=== PATIENT | female | born 1965 | race Native Hawaiian/Other Pacific Islander ===

== ENCOUNTER 2022-04-05 17:32 | Emergency (ER) | payer SELFPAY ==
[2022-04-05] VITALS (10 sets, daily range): BP systolic 131–156; BP diastolic 62–81; PULSE 78–85; RESP 16–18; TEMP 36.3–36.4; O2SAT 96–100; BMI 37.1
--- NOTE | 2022-04-05 18:37 | CRLHL7_ITS ---
For Patients: As a result of the Century Cures Act, medical imaging exams and procedure reports are released immediately into your electronic medical record. You may view this report before your referring provider. If you have questions, please contact your health care provider. INDICATION: Chest pain. COMPARISON: None. TECHNIQUE: Single-view chest radiograph. FINDINGS: Cardiomediastinal contours within normal limits for patient positioning. Clear lungs. No significant pleural effusion or pneumothorax. IMPRESSION: No acute cardiopulmonary abnormality. Dictated by Ishmael Posey MD @ 04/05/2022 7:05:30 PM (Electronically Signed)
[2022-04-05 19:23] LABS: Basophils Absolute Auto 0.04 K/uL (0.00-0.30); Basophils Percent Auto 0.4 % (0.0-3.0); Eosinophils Absolute Auto 0.49 K/uL (0.00-0.50); Eosinophils Percent Auto 5.2 % (0.0-7.0); Hematocrit 29.1 % (33.0-51.0); Hemoglobin* 9.5 gm/dL (12.0-16.0); Immature Granulocytes Abs Auto 0.02 K/uL (0.00-0.30); Immature Granulocytes Pct Auto 0.2 %; Lymphocytes Absolute Auto 3.17 K/uL (0.90-2.90); Lymphocytes Percent Auto 33.8 % (20-44); Mean Corpuscular HGB Conc 33 gm/dL (32-36); Mean Corpuscular Hemoglobin 28 pg (26-34); Mean Corpuscular Volume 86 fL (80-100); Monocytes Percent Auto 6.7 % (0.0-11.0); Neutrophils Absolute Auto 5.02 K/uL (1.7-7.0); Neutrophils Percent Auto 53.7 % (42.0-72.0); Platelet Count* 358 K/uL (140-440); RDW Coefficient of Variation % 12.7 % (11.5-15.5); Red Blood Count 3.37 m/uL (4.00-5.20); White Blood Count* 9.37 K/uL (4.50-11.00)
[2022-04-05 19:29] LABS: Slide Review Reflex No
[2022-04-05 19:38] LABS: Chloride* 106 mmol/L (96-114); Potassium* 5.5 mmol/L (3.6-5.1); Sodium* 135 mmol/L (135-149)
[2022-04-05 19:41] LABS: Creatinine* 0.8 mg/dL (0.5-1.5); Estimated Glomerular Filt Rate 86 ml/min
[2022-04-05 19:42] LABS: Blood Urea Nitrogen* 39 mg/dL (7-30); Calcium* 9.1 mg/dL (8.4-10.6); Carbon Dioxide* 27 mmol/L (20-32); Glucose* 181 mg/dL (60-115)
[2022-04-05 19:50] LABS: C Reactive Protein* < 0.5 mg/dL (0.5-1.0)
[2022-04-05 19:51] LABS: NT Pro B Type NatriureticPept* 100 pg/mL
[2022-04-05 19:53] LABS: Troponin I* 0.02 ng/mL (0.01-0.04)
--- NOTE | 2022-04-05 20:03 | ED_ITS ---
HPI - General Adult General Chief complaint: Chest Pain Stated complaint: Chest Pain Time Seen by Provider: 04/05/22 18:24 History of Present Illness HPI narrative: 57-year-old woman presenting to the emergency department complaint of left upper chest pressure. She describes it though was more of palpitation or fluttering that occurred intermittently yesterday evening and then recurred again today and just did not seem to go away since about noon. This has been going on for hours now. As I am talking with her looking on monitor I think sometimes I am seeing some PACs. She isn't specifically symptomatic with this though. She had a similar episode about 2 months ago. She is not having shortness of breath. No nausea. Does not have known coronary vascular disease. She does report that her mother had an ischemic cardiac event she thinks around age 58 but her mom also had diabetes. I do look back at records here and I see a rather elevated hemoglobin A1c over 10 a year ago or so. Review confirms diabetes. She does have leg cramps as well that has been going on for some time; she notes her thighs. More noticeable in the evenings. They can get stiff. Not just an irritability. Chest symptoms can get worse with exertion. She does work in a factory. Healthcare generally through [facility] Related Data Allergies Allergy/AdvReac Type Severity Reaction Status Date / Time No Known Drug Allergies Allergy Verified 04/05/22 17:51 Review of Systems Status of ROS: Reports: 10 or more systems reviewed and unremarkable except as noted in History and below PFSH PFSH Social History Smoking Status: Never smoker Do you use any of these nicotine containing products: None Second hand tobacco smoke exposure: Yes How often do you have a drink containing alcohol: never How often do you have six or more drinks on one occasion: Never AUDIT-C Alcohol total score: 0 Non-prescribed substance use: denies use service: No Exam Narrative: Exam Narrative: Pleasant. NAD. Skin is warm and dry. Extremities are without reproducible pain. There is no lower extremity edema. Moving all extremities without difficulty. She is well-perfused. Cranial nerves 2-12 look to be intact. Breathing easily lungs are clear. Heart with a regular rate and rhythm. No murmur rub or gallop identified. Abdomen is overweight soft nontender. Examination of the chest wall does have some reproducibility at the left mid chest anteriorly. I do not see any erythema swelling or rash to the skin. Again as I am talking with her she is reporting continued symptoms. I think there are occasional PACs on monitor though this also corresponds with some movement by Ms. Nunez. Const: Vital Signs, click to edit/add: Vital Signs - 24 hr 04/05/22 17:52 04/05/22 19:16 04/05/22 19:17 Temperature 97.4 F L 97.6 F Pulse Rate [Pulse Oximeter] 85 85 Respiratory Rate 18 18 Blood Pressure [Ri ght Upper Arm] 153/72 H 131/63 Pulse Oximetry 98 96 99 Oxygen Delivery Me thod Room Air Room Air 04/05/22 19:30 04/05/22 19:45 04/05/22 20:00 Temperature Pulse Rate [Pulse Oximeter] 82 82 84 Respiratory Rate 18 16 16 Blood Pressure [Ri ght Upper Arm] 145/75 H 156/81 H 146/62 H Pulse Oximetry 98 98 98 Oxygen Delivery Me thod Room Air Room Air 04/05/22 20:15 04/05/22 20:30 04/05/22 21:00 Temperature Pulse Rate [Pulse Oximeter] 81 82 84 Respiratory Rate 16 16 16 Blood Pressure [Ri ght Upper Arm] 146/62 H 138/64 141/71 H Pulse Oximetry 98 98 98 Oxygen Delivery Me thod Room Air 04/05/22 21:15 Temperature Pulse Rate [Pulse Oximeter] 78 Respiratory Rate 16 Blood Pressure [Ri ght Upper Arm] 143/74 H Pulse Oximetry 100 Oxygen Delivery Me thod Room Air Documenting provider has reviewed patient's vital signs: yes Course Vital Signs Vital signs: Initial Vital Signs Temperature 97.4 F L 04/05/22 17:52 Temperature Source Temporal Artery Scan 04/05/22 17:52 Pulse Rate 85 04/05/22 17:52 Pulse Rhythm 04/05/22 17:52 Respiratory Rate 18 04/05/22 17:52 Blood Pressure 153/72 H 04/05/22 17:52 Blood Pressure Mean 99 04/05/22 17:52 Blood Pressure Position Sitting 04/05/22 17:52 Pulse Oximetry 98 04/05/22 17:52 Oxygen Delivery Method 04/05/22 17:52 Vital Signs Temperature 97.4 F L 04/05/22 17:52 Pulse Rate 85 04/05/22 17:52 Respiratory Rate 18 04/05/22 17:52 Blood Pressure 153/72 H 04/05/22 17:52 Pulse Oximetry 98 04/05/22 17:52 Oxygen Delivery Method 04/05/22 17:52 Temperature 97.6 F 04/05/22 19:17 Pulse Rate 78 04/05/22 21:15 Respiratory Rate 16 04/05/22 21:15 Blood Pressure 143/74 H 04/05/22 21:15 Pulse Oximetry 100 04/05/22 21:15 Oxygen Delivery Method 04/05/22 21:15 Medical Decision Making MDM Narrative Medical decision making narrative: differential includes pe, pneumonia, pneumothorax, pericarditis, myocarditis, chest wall pain, arrhythmia, vascular disruption, anxiety facilities maintenance worker -- pacs? sxs not distinct to these. cxr reviewed by me wnl ekg as below labs reassuring. K+ a little elevated in the setting of elevated blood glucose. though bg not terribly high compared to prior, hgb drifting down a little. down by 1.5 gm over last 6 mos. not evidence of active bleeding. anemia adding to leg cramps restlessness? Lab Data Lab results reviewed: Yes I reviewed the patient's lab results Labs: Lab Results 04/05/22 04/05/22 04/05/22 Range/Units 19:11 19:11 19:11 WBC 9.37 (4.50-11.00) K/uL RBC 3.37 L (4.00-5.20) m/uL Hgb 9.5 L (12.0-16.0) gm/dL Hct 29.1 L (33.0-51.0) % MCV 86 (80-100) fL MCH 28 (26-34) pg MCHC 33 (32-36) gm/dL RDW Coeff of John 12.7 (11.5-15.5) % Plt Count 358 (140-440) K/uL Neut % (Auto) 53.7 (42.0-72.0) % Lymph % (Auto) 33.8 (20-44) % Perkins % (Auto) 6.7 (0.0-11.0) % Eos % (Auto) 5.2 (0.0-7.0) % Baso % (Auto) 0.4 (0.0-3.0) % Neut # (Auto) 5.02 (1.7-7.0) K/uL Lymph # (Auto) 3.17 H (0.90-2.90) K/uL Perkins # (Auto) 0.60 (0.00-0.90) K/UL Eos # (Auto) 0.49 (0.00-0.50) K/uL Baso # (Auto) 0.04 (0.00-0.30) K/uL D-Dimer Quant (PE/DVT) 0.40 (0.00-0.50) ug/ml Sodium 135 (135-149) mmol/L Potassium 5.5 H (3.6-5.1) mmol/L Chloride 106 (96-114) mmol/L Carbon Dioxide 27 (20-32) mmol/L BUN 39 H (7-30) mg/dL Creatinine 0.8 (0.5-1.5) mg/dL Estimated Creat Clear 56.40 Estimated GFR 86 ml/min Glucose 181 H (60-115) mg/dL Calcium 9.1 (8.4-10.6) mg/dL Magnesium (1.5-2.6) mg/dL Troponin I (0.01-0.04) ng/mL C-Reactive Protein < 0.5 L (0.5-1.0) mg/dL NT-Pro-B Natriuret Pep pg/mL POC Troponin I (0.01-0.04) ng/ml 04/05/22 04/05/22 Range/Units 19:11 19:16 WBC (4.50-11.00) K/uL RBC (4.00-5.20) m/uL Hgb (12.0-16.0) gm/dL Hct (33.0-51.0) % MCV (80-100) fL MCH (26-34) pg MCHC (32-36) gm/dL RDW Coeff of John (11.5-15.5) % Plt Count (140-440) K/uL Neut % (Auto) (42.0-72.0) % Lymph % (Auto) (20-44) % Perkins % (Auto) (0.0-11.0) % Eos % (Auto) (0.0-7.0) % Baso % (Auto) (0.0-3.0) % Neut # (Auto) (1.7-7.0) K/uL Lymph # (Auto) (0.90-2.90) K/uL Perkins # (Auto) (0.00-0.90) K/UL Eos # (Auto) (0.00-0.50) K/uL Baso # (Auto) (0.00-0.30) K/uL D-Dimer Quant (PE/DVT) (0.00-0.50) ug/ml Sodium (135-149) mmol/L Potassium (3.6-5.1) mmol/L Chloride (96-114) mmol/L Carbon Dioxide (20-32) mmol/L BUN (7-30) mg/dL Creatinine (0.5-1.5) mg/dL Estimated Creat Clear Estimated GFR ml/min Glucose (60-115) mg/dL Calcium (8.4-10.6) mg/dL Magnesium 2.0 (1.5-2.6) mg/dL Troponin I 0.02 (0.01-0.04) ng/mL C-Reactive Protein (0.5-1.0) mg/dL NT-Pro-B Natriuret Pep 100 pg/mL POC Troponin I 0.00 L (0.01-0.04) ng/ml ECG Data Attestation: I personally reviewed and interpreted this ECG as follows: (Normal sinus rate of 78) Discharge Plan Discharge Clinical Impression: Anemia, Hyperglycemia, Chest pressure, Hyperkalemia Patient Disposition: Home, Self-Care Condition: Stable Instructions: Chest Pain (ED) Additional Instructions: Your elevated potassium might be partially due to your elevated blood sugar. I would follow up in a week and recheck this. Your hemoglobin has also been drifting down a little bit as well. Recheck that and make a plan with your primary care provider for further workup. As far as your chest discomfort goes, that is a little unclear. As you were little uncomfortable to palpation, might take 600 mg of ibuprofen couple of times daily with a little food over the next 5 days or 250-500 mg of naproxen 2 times daily for 5 days. You were complaining also of leg cramps; it might help to supplement with magnesium. Usually that is at 400 mg twice a day for a week or 2 and then to 400 mg daily. Can discuss this also with primary care. Return for increasing and persistent chest pain particularly associated with shortness of breath or fever or lightheadedness. Elizondo nivel elevado de potasio podr?a deberse en parte a elizondo nivel elevado de az?car en la debby. Augustus?a un seguimiento en kathryn semana y volver?a a comprobar esto. Elizondo hemoglobina tambi?n durant estado bajando un poco. Vuelva a verificar eso y won un plan con elizondo proveedor de atenci?n primaria para m?s an?lisis. En cuanto a elizondo molestia en el pecho, eso no est? paulo. Leonore se sent?a un poco inc?modo a la palpaci?n, podr?a yissel 600 mg de ibuprofeno un par de veces al d?a con un poco de comida cale los pr?ximos 5 d?as o 250-500 mg de naproxeno 2 veces al d?a cale 5 d?as. Usted se quejaba tambi?n de calambres en las piernas; Podr?a ayudar complementar con magnesio. Por lo general, eso es a 400 mg dos veces al d?a cale kathryn semana o 2 y luego a 400 mg diarios. Puede discutir esto tambi?n con la atenci?n primaria. Retorno para el dolor tor?cico creciente y persistente particularmente asociado con dificultad para respirar o fiebre o aturdimiento. Follow Up/Referrals: Provider,Not a Local [Primary Care Provider] - Stand Alone Forms: [facility] Info Inst[facility]
== END 2022-04-05 21:39 | disposition home or self-care (01) ==
PROVIDERS: Emergency Provider Family Medicine
DX: D64.9 Anemia, unspecified (principal); R73.9 Hyperglycemia, unspecified; R07.89 Other chest pain; E87.5 Hyperkalemia
CPT/HCPCS: 36415; 71045; 80048; 83735; 83880; 84484; 85025; 85379; 86140; 93005; 94761; 99284; 99285

== ENCOUNTER 2023-08-17 21:06 | Emergency (ER) | payer OTHER, SELFPAY ==
[2023-08-17 21:14] VITALS: BP 152/75; PULSE 77; RESP 18; TEMP 36.4; O2SAT 98; BMI 35.1
--- NOTE | 2023-08-17 21:41 | ED_ITS ---
HPI - General Adult General Chief complaint: Lower Extremity Swelling Stated complaint: Swollen R foot. Time Seen by Provider: 08/17/23 21:32 History of Present Illness HPI narrative: Patient is a 58-year-old woman who had episode of right lower extremity cellulitis following a pedicure proximally 2 months ago. Patient made full recovery but has poorly controlled diabetes. She now has redness over the anterior aspect of the ankle and foot consistent with her previous cellulitis. She has no evidence of DVTs such as swelling in her posterior cap bruising or ecchymoses. All symptoms are located on the right. She has burning and itching and mild discomfort. No fevers no chills no other significant symptoms no recent injuries. Related Data Home Medications ?Medication ?Instructions ?Recorded ?Confirmed acetaminophen PO 08/17/23 aspirin .ROUTE 08/17/23 gabapentin 300 mg capsule 300 mg PO 3XD 08/17/23 08/17/23 glipizide PO 08/17/23 insulin asp prt-insulin aspart subcut 08/17/23 levothyroxine .ROUTE 08/17/23 lisinopril .ROUTE 08/17/23 metformin .ROUTE 08/17/23 Allergies Allergy/AdvReac Type Severity Reaction Status Date / Time No Known Drug Allergies Allergy Verified 06/13/23 15:53 Review of Systems Status of ROS: Reports: 10 or more systems reviewed and unremarkable except as noted in History and below PFSH PFS Social History Smoking Status: Never smoker Do you use any of these nicotine containing products: None Second hand tobacco smoke exposure: No How often do you have a drink containing alcohol: never How often do you have six or more drinks on one occasion: Never AUDIT-C Alcohol total score: 0 Non-prescribed substance use: denies use service: No Exam Narrative: Exam Narrative: EXAM GENERAL: Patient appears comfortable and well. EYES: No scleral icterus. ENT: Tympanic membranes and oropharynx normal. THYROID: no thyroid nodules or thyromegaly. LYMPH: No supraclavicular or cervical lymphadenopathy. SKIN: Area of cellulitis with erythema slightly raised cutaneous tissue in the anterior ankle. EXT: No dependent lower extremity pedal edema. HEART: Regular rate and rhythm with no murmurs, rubs, or gallops. LUNGS: Clear to auscultation bilaterally with no crackles or wheezes. ABD: Soft, non tender, non distended. PSYCH: Good eye contact, speech is not pressured. Const: Vital Signs, click to edit/add: Vital Signs - 24 hr 08/17/23 21:14 Temperature 97.6 F Pulse Rate [Pulse Oximeter] 77 Respiratory Rate 18 Blood Pressure [Ri ght Upper Arm] 152/75 H Pulse Oximetry 98 Oxygen Delivery Me thod Room Air Course Course ED Course: Patient seen and examined. Vital Signs Vital signs: Initial Vital Signs Temperature 97.6 F 08/17/23 21:14 Temperature Source Temporal Artery Scan 08/17/23 21:14 Pulse Rate 77 08/17/23 21:14 Respiratory Rate 18 08/17/23 21:14 Blood Pressure 152/75 H 08/17/23 21:14 Blood Pressure Mean 100 08/17/23 21:14 Blood Pressure Position Sitting 08/17/23 21:14 Pulse Oximetry 98 08/17/23 21:14 Oxygen Delivery Method Room Air 08/17/23 21:14 Vital Signs Temperature 97.6 F 08/17/23 21:14 Pulse Rate 77 08/17/23 21:14 Respiratory Rate 18 08/17/23 21:14 Blood Pressure 152/75 H 08/17/23 21:14 Pulse Oximetry 98 08/17/23 21:14 Oxygen Delivery Method Room Air 08/17/23 21:14 Temperature 97.6 F 08/17/23 21:14 Pulse Rate 77 08/17/23 21:14 Respiratory Rate 18 08/17/23 21:14 Blood Pressure 152/75 H 08/17/23 21:14 Pulse Oximetry 98 08/17/23 21:14 Oxygen Delivery Method Room Air 08/17/23 21:14 Medical Decision Making MDM Narrative Medical decision making narrative: Patient is a 58-year-old woman who presents with recurrence of cellulitis in the right lower extremity. Sense of DVT. I did treated with Keflex. Differential diagnosis includes but not limited to cellulitis abscess monoarthritis contact dermatitis allergic reaction. Patient courage to follow-up with her primary physician her diabetes under better control take Keflex for week and keep her leg elevated. Discharge Plan Discharge Clinical Impression: Cellulitis Patient Disposition: Home, Self-Care Condition: Stable Instructions: Cellulitis (ED) Additional Instructions: Keflex as directed Leg elevation Follow-up with your doctor this week to address her diabetes. Activity Level: No Restrictions Discharge Diet: Regular Prescriptions: No Action acetaminophen PO metformin .ROUTE aspirin .ROUTE glipizide PO levothyroxine .ROUTE lisinopril .ROUTE insulin asp prt-insulin aspart [Novolog Mix 70-30FlexPen U-100] subcut gabapentin 300 mg capsule 300 mg PO 3XD Follow Up/Referrals: Provider,Not a Local [Primary Care Provider] - Stand Alone Forms: [facility] Info Instructions
--- OUTSIDE RECORDS SUMMARY | 2023-08-17 21:56 | XMS_ITS | Clinical Summary ---
Author Organization [facility] Address [place], [place] [address] Care Team Providers Care Studio Hand Name Role Phone Cyn Cha DO Primary Care Provider [phone] Allergies No known active allergies Medications Medication Sig Dispensed Refills Start Date End Date Status ASPIRIN 81 MG TAB, DELAYED RELEASE take 1 tablet (81 mg) by oral route once daily 0 01/22/2008 Active BLOOD GLUCOSE TEST STRIPSIndications:DM type 2 (diabetes mellitus, type 2) (HC) test blood sugars 1-3 times daily. 100 3 09/14/2008 Active FREESTYLE TEST STRIPSIndications:Ty pe II or unspecified type diabetes mellitus without mention of complication, not stated as uncontrolled test blood sugars three times daily. 100 11 11/20/2008 Active INSULIN SYRINGE-NEEDLE U-100 1/2 ML 31 X 5/16Indications:Typ e II or unspecified type diabetes mellitus without mention of complication, not stated as uncontrolled use as directed 1 box 11 11/20/2008 Active polyethylene glycoL (MIRALAX) 17 gram/dose powderIndications:BR BPR (bright red blood per rectum),Hemorrhoids, external Take 17 g by mouth once daily. 1 jar 1 05/30/2016 Active levothyroxine (SYNTHROID) 137 mcg tabletIndications:Ot her specified hypothyroidism TAKE 1 TABLET BY MOUTH BEFORE BREAKFAST. 90 tablet 2 06/22/2018 Active metFORMIN (GLUCOPHAGE) 1,000 mg tabletIndications:Di abetes mellitus without complication (HC) TAKE 1 TABLET BY MOUTH 2 TIMES DAILY WITH MEALS. 180 tablet 09/16/2018 Active ferrous sulfate, 65 mg elemental, tablet FeroSul 325 mg (65 mg iron) tablet TAKE 2 TABLETS BY MOUTH EVERY OTHER DAY Active lisinopriL (PRINIVIL; ZESTRIL) 10 mg tablet lisinopril 10 mg tablet TAKE ONE TABLET BY MOUTH EVERY DAY Active melatonin 10 mg tab melatonin 10 mg tablet Take 1 tablet by oral route. Active naproxen (NAPROSYN) 500 mg tablet naproxen 500 mg tablet TAKE ONE TABLET BY MOUTH EVERY DAY Active gabapentin (NEURONTIN) 300 mg capsuleIndications:C hronic bilateral thoracic back pain,Neuropathic pain Take 1 Capsule (300 mg) by mouth three times daily. 270 Capsule 1 08/18/2022 Active tiZANidine (ZANAFLEX) 2 mg tabletIndications:Ch ronic bilateral thoracic back pain Take 1-2 Tablets (2-4 mg) by mouth at bedtime. 40 Tablet 08/18/2022 Active celecoxib (CELEBREX) 200 mg capsuleIndications:B ilateral primary osteoarthritis of knee Take 1 Capsule (200 mg) by mouth two times daily with meals. 60 Capsule 2 10/16/2022 Active methylPREDNISolone (Medrol, Cam,) 4 mg tabletIndications:Roxie mbar radiculopathy Take by mouth as instructed per packaging. 21 Tablet 05/10/2023 Active glyBURIDE (MICRONASE; DIABETA) 5 mg tabletIndications:Un controlled type 2 diabetes mellitus with hyperglycemia, with long-term current use of insulin (HC) Take 1 Tablet by mouth before breakfast. Active insulin NPH-regular (NOVOLIN FLEXPEN; HUMULIN KWIKPEN) 100 unit/mL (70-30) penIndications:Uncon trolled type 2 diabetes mellitus with hyperglycemia, with long-term current use of insulin (HC) Inject 30-40 units subcutaneous two times daily before meals. 20 mL 2 05/18/2023 Active insulin NPH isophane, U-100, (NOVOLIN-N, HUMULIN-N) 100 unit/mL susp injectionIndications :Uncontrolled type 2 diabetes mellitus with hyperglycemia, with long-term current use of insulin (HC) Inject 60 units subcutaneous before bedtime. 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 Plan: Pap/HPV due 03/2026 Chronic right shoulder pain 12/28/2016 Dental decay 12/28/2016 Other insomnia 12/28/2016 Internal hemorrhoids 06/20/2016 Overview: Colonoscopy 05/2016 hemorrhoids repeat in 10 years Helicobacter pylori (H. pylori) 11/15/2009 Hypothyroidism 06/11/2009 Type II or unspecified type diabetes mellitus without mention of complication, not stated as uncontrolled 04/03/2008 Hyperlipidemia LDL goal < 100 Encounters Date Type Department Care Team Description 06/25/2023 4:20 PM CDT Office Visit [facility] [address] [place] [address] Cyn Cha, Results (Discuss lab results) 06/25/2023 Travel 05/21/2023 Telephone [facility] [address] [place] [address] Cyn Cha, Results 05/18/2023 3:30 PM CDT Office Visit [facility] [address] [place] [address] Cyn Cha, DO Diabetes (diabetes/having a hard time getting sugar levels down) 05/18/2023 Travel from Last 3 Months Immunizations Name Administration Dates Next Due Influenza, IIV3 (Age >=3 years) 03/28/2013 Influenza, IIV4 01/18/2021, 9,12/11/2016,2014,01/23/2014 Pneumococcal Poly,23-Valent (Pneumovax) 01/19/2015 Td (Age >=7 Years) 02/27/2004 Tdap 01/23/2014 Zoster (Shingrix-RZV, recombinant) 06/25/2023, Family History Medical History Relation Name Comments Diabetes Brother x4 Diabetes Mother Hypertension Mother Cancer-breast No Family History Relation Name Status Comments Brother Mother Social History Tobacco Use Types Packs/Day Years Used Date Smoking Tobacco: Passive Smo ke Exposure - Never Smoker Smokeless Tobacco: Never Tobacco Cessation:Counseling Given: Yes Alcohol Use Standard Drinks/Week Comments No 0 (1 standard drink = 0.6 oz pur e alcohol) PHQ-2 Answer Date Recorded PHQ-2 TOTAL SCORE 2 04/13/2021 Social Connections Answer Date Recorded Frequency of Communication with Friends and Fami ly Not on file 04/13/2021 Financial Resource Strain Answer Date R ecorded Difficulty of Paying Living Expenses Not on file 04/13/2021 Difficulty of Paying Living Expenses Not on file 04/13/2021 Sex and Gender Information Value Date Recorded Sex Assigned at Not on file Gender Identity Not on file Sexual Orientation Not on file Obstetrics History Para Term AB IAB SAB Ectopic Multiple Livin g Live Births 4 4 4 Date Outcome GA Total Labor Labor/2nd/3rd Weight Sex Type Anes PTL Zunilda A1 A5 Name Clin Term Term Term Term Last Filed Vital Signs Vital Sign Reading Time Taken Comments Blood Pressure 161/78 06/25/2023 4:22 PM CDT Pulse 84 06/25/2023 4:22 PM CDT Temperature 36.7 ??C (98 ??F) 11/29/2022 2:34 PM CDT Respiratory Rate 20 05/30/2016 8:14 AM CDT Oxygen Saturation 99% 06/25/2023 4:22 PM CDT Inhaled Oxygen Concentration - - Weight 88.5 kg (195 lb 3.2 oz) 06/25/2023 4:22 P M CDT Height 150.4 cm (4' 11.21) 05/12/2022 3:22 PM C DT Body Mass Index 39.14 05/12/2022 3:22 PM CDT Plan of Treatment Health Maintenance Due Date Last Done Comments HIV for age 15-65 1981 Hepatitis C screening for ag e 18-79 1984 Hepatitis B series for Diabe yuli (1 of 3 - 19+ 3-dose series) 1985 Pneumococcal series for age 6-64 (2 of 2 - PCV) 01/20/2016 01/19/2015 Mammogram for age 45-75 04/13/2022 04/13/19 22, 01/03/2013, 05/05/2011, Additional history exists Depression screening for age 12+ 04/14/2022 04/14/2021, 04/13/2021, 11/30/2017, Additional history exists COVID-19 vaccine series ( season) 2022 03/18/2021, 06/12/2020, 05/22/2020 BMI (ht and wt on same day) for age 18+ 05/13/2023 05/12/2022, 07/22/2021, 07/23/2018, Additional history exists Influenza for age 50-64 10/28/2023 01/19/20, 04/22/2018, 12/11/2016, Additional history exists Tetanus booster 01/24/2024 01/23/2014, 02/27/2004 Pap test for age 21-65 04/13/2026 , 04/13/2021, 04/17/2011, Additional history exists Colonoscopy through age 75 06/20/202606/20, 06/20/2016, 06/20/2016 Lipids for age 45-75 05/17/2028 05/18/2023, 05/12/2022, 04/13/2021, Additional history exists Tdap Completed 01/23/2014 Zoster (shingles) series for age 50+ Completed 06/25/2023, 07/22/2021 Procedures Procedure Name Priority Date/Time Associated Diagnosis Comments URINE ALBUMIN TO CREATININE RATIO, RANDOM Routine 05/18/2023 3:57 PM CDT Uncontrolled type 2 diabetes mellitus with hyperglycemia, with long-term current use of insulin (HC) TSH Routine 05/18/2023 3:52 PM CDT Hypothyroidism due to medication BASIC METABOLIC PANEL Routine 05/18/2023 3:52 PM CDT Uncontrolled type 2 diabetes mellitus with hyperglycemia, with long-term current use of insulin (HC) LIPID PANEL W REFLEX MEASURED LDL Routine 05/18/2023 3:52 PM CDT Hyperlipidemia with target LDL less than 100 Uncontrolled type 2 diabetes mellitus with hyperglycemia, with long-term current use of insulin (HC) HEMOGLOBIN A1C Routine 05/18/2023 3:52 PM CDT Uncontrolled type 2 diabetes mellitus with hyperglycemia, with long-term current use of insulin (HC) XR MAMMO BILAT SCREENING Routine 04/13/2021 4:45 PM BARREL INSPECTOR Encounter for screening mammogram for malignant neoplasm of breast WARP HANGER THIN PREP PAP SCREEN IMAGED Routine 04/13/2021 4:00 PM BARREL INSPECTOR Screening for cervical cancer COLONOSCOPY 06/20/2016 9:38 AM CDT from Last 3 Months or Most Recently Relevant to Health Maintenance Results * (ABNORMAL) URINE ALBUMIN TO CREATININE RATIO, RANDOM (05/18/2023 3:57 PM CDT) ALB RAND URINE 693.0 mg/L 05/18/2023 11:34 PM CDT [facility] CREATININE,URIN E 0.25 g/L 05/18/2023 11:34 PM CDT [facility] ALBUMIN TO CREATININE RATIO,RAND UR 2,772.0(H) <30.0 mg/g creat 05/18/2023 11:34 PM CDT [facility] Urine URINE SPECIMEN / Unknown Non-Blood / Unknown 05/18/2023 3:57 PM CDT 05/18/2023 3:57 PM CDT Narrative [facility] - 05/18/2023 11:34 PM CDT If Albumin to Creatinine Ratio is elevated, consider the following: ? Elevations seen with incipient nephropathy associated ?? with diabetes mellitus or hypertension. Stress, exercise,hematuria, ?? and urinary tract infection may also produce elevated results. If clinically indicated, confirm with ?24 Hour Albumin to Creatinine Ratio. ?? Cyn Cha DO URINE [facility] [address] [place] [address], * (ABNORMAL) LIPID PANEL W REFLEX MEASURED LDL (05/18/2023 3:52 PM CDT) CHOLESTEROL,TOTAL 252(H) 100 - 199 mg/dL 05/18/2023 9:38 PM CDT [facility] Comment: Cholesterol, Total Reference Ranges Desirable <200 mg/dL Borderline 200-239 mg/dL High >=240 mg/dL TRIGLYCERIDES 129 <150 mg/dL 05/18/2023 9:38 PM CDT [facility] HDL CHOLESTEROL 111 >40 mg/dL 9:38 PM CDT [facility] NON-HDL CHOLESTEROL 141 <145 mg/dl 05/18/2023 9:38 PM CDT [facility] CHOL/HDL RATIO 2.27 <4.50 05/18/2023 9:38 PM CDT [facility] LDL CHOLESTEROL 115 <=130 mg/dL 05/18/2023 9:38 PM CDT [facility] VLDL CHOLESTEROL 26 <=30 mg/dL 05/18/2023 9:38 PM CDT [facility] PROVIDER ORDERED STATUS RANDOM 05/18/2023 9:38 PM CDT [facility] Blood BLOOD SPECIMEN / Unknown Butterfly / Unknown 05/18/2023 3:52 PM CDT 05/18/2023 3:55 PM CDT Cyn Cha DO CHEMISTRY Performing Organization Address City/[facility]/ZIP Co de Phone Number [facility] [address] [place] [address], * TSH (05/18/2023 3:52 PM CDT) TSH 2.97 0.27 - 4.20 uIU/mL 05/18/2023 9:38 PM CDT [facility] Blood BLOOD SPECIMEN / Unknown Butterfly / Unknown 05/18/2023 3:52 PM CDT 05/18/2023 3:55 PM CDT Narrative [facility] - 05/18/2023 9:38 PM CDT In Adults, TSH values between 5.00 and 10.00 uIU/ml do not necessarily indicate the presence of Hypothyroidism. Correlation with clinical findings such as presence of goiter and/or Thyroperoxidase (TPO) Antibody may be helpful. For more information please refer to SANDIE 2004; 291: 228-238. Cyn Cha DO CHEMISTRY [facility] [address] [place] [address], [place] * (ABNORMAL) HEMOGLOBIN A1C MONITORING (POCT) (05/18/2023 3:52 PM CDT) [facility] HEMOGLOBIN A1C MONITORING (POCT) 13.6(H) <=6.4 % 05/18/2023 4:06 PM CDT [facility] Blood BLOOD SPECIMEN / Unknown Butterfly / Unknown 05/18/2023 3:52 PM CDT 05/18/2023 3:55 PM CDT Narrative [facility] - 05/18/2023 4:06 PM CDT ? (<=6.9%) ? Indicates good control ? (7.0% to 7.9%) ? Indicates fair control ? (>=8.0%) ? Indicates poor control ?? NOTE: ??These thresholds are guidelines and ?individual targets may vary. Falsely low levels may be seen with: Recent Transfusion, Recent Significant Blood Loss, Hemolytic Diseases, or Falsely elevated levels may be seen with: Untreated Anemias, Splenectomy ? Cyn Cha DO CHEMISTRY Performing Organization Address City/[facility]/ZIP Co de Phone Number [facility] [address] [place] [address], * (ABNORMAL) BASIC METABOLIC PANEL (05/18/2023 3:52 PM CDT) [facility] SODIUM 134(L) 136 - 145 mmol/L 05/18/2023 9:44 PM CDT [facility] POTASSIUM 4.5 3.5 - 5.1 mmol/L 05/18/2023 9:44 PM CDT [facility] CHLORIDE 98 98 - 107 mmol/L 05/18/2023 9:44 PM CDT [facility] CO2,TOTAL 24 22 - 29 mmol/L 05/18/2023 9:44 PM CDT [facility] ANION GAP 12 5 - 18 05/18/2023 9:44 PM CDT [facility] GLUCOSE 413(H) 70 - 99 mg/dL 05/18/2023 9:44 PM CDT [facility] CALCIUM 9.3 8.6 - 10.0 mg/dL 05/18/2023 9:44 PM CDT [facility] BUN 30(H) 6 - 20 mg/dL 05/18/2023 9:44 PM CDT [facility] CREATININE 0.73 0.50 - 0.90 mg/dL 05/18/2023 9:44 PM CDT [facility] BUN/CREAT RATIO 41(H) 10 - 20 9:44 PM CDT [facility] eGFR >90 >90 mL/min/1.7 3m2 05/18/2023 9:44 PM CDT [facility] Comment:As of 2021, eG FR is calculated by the CKD-EPI creatinine equation without race adjustment. ??eGFR can be influenced by muscle mass, exercise, and diet. ??The reported eGFR is an estimation only and is only applicable if the renal function is stable. Blood BLOOD SPECIMEN / Unknown Butterfly / Unknown 05/18/2023 3:52 PM CDT 05/18/2023 3:55 PM CDT Cyn Cha DO CHEMISTRY [facility] [address] [place] [address], [place] * XR MAMMO BILAT SCREENING (04/13/2021 4:45 PM BARREL INSPECTOR) Anatomical Region Laterality Modality BREASTS, Breast Left, Breast Right Bilateral Mammography Impressions 04/14/2021 3:10 PM BARREL INSPECTOR ??There is no radiographic evidence for malignancy. ??Recommend annual mammograms. MAMMOGRAM ASSESSMENT: ??ACR 1 Negative PATIENTS: You will also receive a letter with your examination results in an easy to read format. ??If you have questions about your results, please contact your referring provider. Narrative 04/14/2021 3:10 PM BARREL INSPECTOR For Patients: As a result of the Century Cures Act, medical imaging exams and procedure reports are released immediately into your electronic medical record. You may view this report before your referring provider. If you have questions, please contact your health care provider. XR MAMMO BILAT SCREENING [[id number]] CLINICAL HISTORY: ??This is an asymptomatic 56 y.o. patient. INDICATION FOR EXAM: Mammogram Screening. TECHNIQUE: CC & MLO views were obtained. ??This study was evaluated with the assistance of Computer-Aided Detection. COMPARISON FILM: Yes 01/03/13 mobile mum ?? FINDINGS: ??The breasts are almost entirely fatty. There are no dominant masses, suspicious micro calcifications or areas of architectural distortion. Cyn Cha DO MAMMO * WARP HANGER THIN PREP PAP SCREEN IMAGED [[id number]] (04/13/2021 4:00 PM BARREL INSPECTOR) Case Report Gynecologic Cytology Report ? Case: [id number] ? Authorizing Provider: ??Cyn Cha, DO ? Collected: ? 04/13/2021 1600 ? Ordering Location: ? [facility] ?? Received: ?04/13/2021 1752 ? Clinic ? First Screen: ?Nav Ibarra ? Specimen: ?WARP HANGER ThinPrep Vial Screening, Cervical ? 04/22/2021 10:18 AM [facility] INTERPRETATION/ RESULT NEGATIVE FOR INTRAEPITHELIAL LESION OR MALIGNANCY (NIL) (none) 04/22/2021 10:18 AM [facility] NISM(S) Shift in kenn suggestive of bacterial vaginosis 04/22/2021 10:18 AM [facility] SPECIMEN ADEQUACY Satisfactory for evaluation Endocervical component present 04/22/2021 10:18 AM BARREL INSPECTOR [facility] HPV REQUEST HPV and PAP 04/22/2021 10:18 AM BARREL INSPECTOR [facility] Date of LMP n/a 04/22/2021 10:18 AM [facility] Last Pap Date 201404/22/2021 10:18 AM [facility] Last Pap Result NIL 10:18 AM BARREL INSPECTOR [facility] Abnormal Pap or Pyrites Bx in last 5 years No 04/22/2021 10:18 AM BARREL INSPECTOR [facility] Menstrual Status Postmenopausal 04/22/2021 10:18 AM [facility] Pyrites Bx Done Today No 04/22/2021 10:18 AM [facility] Additional Information None given 04/22/2021 10:18 AM [facility] Comment: Cytology is screened at [facility] - [address], [place] [address] and [facility] - [address] [place] [address], [place] [address] [address] [facility] - [address] [place] [address] Interpreted at [facility] - [address], [place] [address] Automated Review Successful 04/22/2021 10:18 AM [facility] Comment:Specimen processed s uccessfully by automated senior mechanical technician device, ThinPrep Imaging System, [employer] ANCILLARY TESTING WARP HANGER HPV Ordered, Please see separate report 04/22/2021 10:18 AM [facility] Note The pap test is a screening technique, not a diagnostic procedure. It is used primarily to screen for squamous cancers and precursor lesions. Published studies have shown that it is subject to both false negative and false positive results. The pap test should not be used as the sole means to diagnose or exclude pre-malignant and malignant lesions. 04/22/2021 10:18 AM [facility] Other (Cervical) Non-Blood / Unknown 04/13/2021 4:00 PM BARREL INSPECTOR 04/13/2021 5:52 PM BARREL INSPECTOR Cyn Cha DO PATHOLOGY/CYTOLOGY [facility] [address] [place] [address], [place] * COLONOSCOPY (06/20/2016 9:38 AM CDT) 06/20/2016 9:38 AM CDT Narrative Transcriptions Ming Sethi MD - 06/20/2016 11:42 AM CDT Patient Name: Xena Hays Procedure Date: 06/20/2016 Gender: Female Date of : 1965 Admit Type: Outpatient Procedure: Colonoscopy Proceduralist: Ming Sethi MD , Lorin Merritt (Nurse) Referring MD: Mihaela Wooten Indications/Pre-Op Diagnosis: Evaluation of unexplained GI bleeding, Thisis the patient's first colonoscopy Medications: Fentanyl 100 micrograms IV, Midazolam 2 mgIV, The level of sedation administered wasmoderate Procedure Description: The patient had risks, benefits and alternatives explained to andgave informed consent. The patient had a stable cardiopulmonary status and judged an adequate candidate for conscious sedation. The [id number] was passed through the anus and advanced tothe cecum, identified by appendiceal orifice and ileocecal valve. The colonoscopy was performed without difficulty. The patient toleratedthe procedure well. The quality of the bowel preparation was good. The ileocecal valve, appendiceal orifice, and rectum were photographed. Complications: No immediate complications. Estimated Blood Loss & Specimen: Estimated blood loss: none. Specimen collected - None Findings: Non-bleeding internal hemorrhoids were found during retroflexion. The hemorrhoids were small. The exam was otherwise without abnormality on direct and retroflexion views. Impressions/Post-Op Diagnosis: - Non-bleeding internal hemorrhoids. - The examination was otherwise normal on direct and retroflexionviews. - No specimens collected. Recommendation: - Patient has a contact number available for emergencies. The signsand symptoms of potential delayed complications were discussed with the patient. Return to normal activities tomorrow. Written discharge instructions were provided to the patient. - Resume previous diet. - Continue present medications. - Repeat colonoscopy in 10 years for screening purposes. Moderate Sedation: Moderate (conscious) sedation was administered by the endoscopy nurse and supervised by the endoscopist. The following parameters were monitored: oxygen saturation, heart rate, respiratory rate, blood pressure, adequacy of pulmonary ventilation and reponse to care. Please refer to the patien'ts medical record flowsheets and nursing notes for moderate sedation details. Total physician intraservice time was 21 minutes. Ming Sethi MD 06/20/2016 11:41:55 AM This report has been signed electronically. Note Initiated On: 06/20/2016 9:38 AM Procedure Code(s): --- Professional --- 83512, Colonoscopy, flexible; diagnostic, including collection of specimen(s) bybrushing or washing, when performed (separateprocedure) Diagnosis Code(s): --- Professional --- K64.8, Other hemorrhoids K92.2, Gastrointestinal hemorrhage,unspecified CPT copyright 2016 [employer]. All rights reserved. The codes documented in this report are preliminary and upon estate planner reviewmay be revised to meet current compliance requirements. Scope In: 11:14:19 AM Scope Withdrawal Time 0 hours 9 minutes 57 seconds Scope Out: 11:33:20 AM Ming Sethi MD PROCEDURE ORD from Last 3 Months or Most Recently Relevant to Health Maintenance Care Teams Studio Hand Relationship Specialty Start Date End Date Cyn Cha DO [address] [place] [address] PCP - General Family Practice 02/28/18
--- OUTSIDE RECORDS SUMMARY | 2023-08-17 21:56 | XMS_ITS | Data Portability ---
Author Organization [facility] Address [address] [place] [address] Sheldon LAURA SAMSON [address] Assessment Encounter Date Assessment Date Assessment LastModified by Organization Details LastModified Time 08/13/2019 08/13/2019 needs testing although reluctant and transportation is a problem Not available 08/13/2019 16:17:40 Plan of Treatment Reminders Order Date Submit Date Provider Last Modified By Organization Details Last Modified Time Details Appointments None recorde d. Lab CBC 2022 023 [facility], [address] [place] [address], [id number], 3 22:31:56 CMP, serum or plasma 2022 023 [facility], [address] [place] [address], [address], 3 22:31:56 lipid panel, serum 2022 023 [facility], [address] [place] [address], [address], 3 09:51:04 HbA1c (hemogl obin A1c), blood 2022 023 [facility], [address] [place] [address], [id number], 3 22:31:56 TSH, serum or plasma 2022 023 [facility], [address] [place] [address], [address], 3 22:31:56 noninva sive colorec binta cancer DNA + occult blood screeni ng, QL, stool 2021 022 cara [facility], [address] [place] [address], [address], 2 10:42:24 CBC 2021 022 [facility], [address] [place] [address], [address], 2 19:30:04 CMP, serum or plasma 2021 022 [facility], [address] [place] [address], [address], 2 19:32:52 hemoglo bin A1C/hem oglobin total, QN, blood 2021 022 [facility], [address] [place] [address], [address], 2 19:32:52 lipid panel, blood 2021 022 [facility], [address] [place] [address], [address], 2 19:32:52 microal bumin, urine 2021 022 hanna [facility], [address] [place] [address], [address], 2 19:33:34 CBC 2020 021 [email or web address] [facility], [address] [place] [address], [address], 1 10:52:38 CMP, serum or plasma 2020 021 [email or web address] [facility], [address] [place] [address], [address], 1 10:33:00 hemoglo bin A1C/hem oglobin total, QN, blood 2020 021 [email or web address] [facility], [address] [place] [address], [address], 10:33:20 lipid panel, serum 2020 021 [email or web address] [facility], [address] [place] [address], [address], 10:33:37 microal bumin/c reatini ne, mass ratio, urine 2020 021 [email or web address] [facility], [address] [place] [address], [address], 10:33:44 TSH, serum or plasma 2020 021 [email or web address] [facility], [address] [place] [address], [address], 10:33:55 urinaly sis, dipstic k 2020 021 [facility], [address] [place] [address], [address], 14:43:30 CBC w/ auto diff 2020 021 [facility], [address] [place], [address], 16:54:33 TSH + free T4, serum 2020 021 [facility], [address] [place], [address], 1 11:10:19 CBC w/ auto diff 2019 020 [facility], [address] [place], [address], 1 11:19:33 ESR (erythr ocyte sedimen tation rate), blood 2019 020 [email or web address] [facility], [address] [place] [address], [address], 1 10:39:47 Influen za A ag, rapid, nasopha ryngeal 2019 020 [email or web address] Not available 0 11:43:01 Referral communi ty health worker referra l 2022 023 Not available 3 10:51:54 optomet rist referra l - call after 4 pm 2021 022 [email or web address] Not available 2 12:19:23 communi ty care referra l 2019 020 [email or web address] Not available 0 15:34:15 communi ty care referra l 2019 020 [email or web address] Not available 0 15:34:15 communi ty care referra l 2019 020 [email or web address] Not available 0 15:34:15 Procedures None recorde d. Surgeries None recorde d. Imaging XR, thoraci c spine 2019 020 MARK Not available 1 11:44:44 XR, lumbar spine 2019 020 [email or web address] Not available 1 14:46:21 Medication Orders naproxe n 500 mg tablet 2022 023 [facility], [address] [place] [address], [address], 3 10:52:14 lisinop ril 10 mg tablet 2022 023 [facility], [address] [place], [address], 3 10:51:59 glyburi de 5 mg tablet [address], [address], 3 14:11:46 melaton in 10 mg tablet [address], [address], 3 12:25:56 aspirin 81 mg tablet, delayed release [address], [address], 2 15:18:10 metform in ER 500 mg tablet, extende d release 24 hr [address], [address], 2 15:17:12 glyburi de 5 mg tablet [address], [address], 3 14:11:46 FeroSul 325 mg (65 mg iron) tablet [address], [address], 3 20:15:14 levothy roxine 137 mcg tablet [address], [address], 2 15:17:34 gabapen tin 100 mg capsule 2021 022 [address] [place], [address], 2 15:16:48 ferrous sulfate 325 mg (65 mg iron) tablet 2020 [facility], [address] [place], [address], 3 20:15:14 metform in ER 500 mg tablet, extende d release 24 hr 2020 021 [facility], [address], [place], [address], 1 19:32:07 glyburi de 5 mg tablet 2020 [facility], [address], [place], [address], 3 14:11:46 levothy roxine 137 mcg tablet 2020 [facility], [address], [place], [address], 19:32:05 gabapen tin 100 mg capsule 2020 021 [facility], [address], [place], [address], 1 19:32:08 gabapen tin 100 mg capsule 2020 021 [facility], [address], [place], [address], 19:32:05 aspirin 81 mg tablet, delayed release 2020 [facility], [address], [place], [address], 1 19:32:06 metform in ER 500 mg tablet, extende d release 24 hr 2020 [facility] [place], [address], [place], [address], 17:36:15 aspirin 81 mg tablet, delayed release 2020 [facility] [place], [address], [place], [address], 17:36:13 gabapen tin 100 mg capsule 2020 [facility] [place], [address], [place], [address], 19:29:41 glyburi de 5 mg tablet [email or web address] [place], [address], [place], [address], 3 14:11:46 levothy roxine 137 mcg tablet 2020 [facility] [place], [address], [place], [address], 17:36:12 gabapen tin 100 mg capsule 2020 021 [facility] [place], [address], [place], [address], 19:29:41 metform in ER 500 mg tablet, extende d release 24 hr 2020 [facility] [place], [address], [place], [address], 10:55:41 aspirin 81 mg tablet, delayed release 2020 [facility] [place], [address], [place], [address], 10:56:22 metform in ER 1,000 mg tablet, extende d release 24hr (osmoti c) 2020 021 [facility] [place], [address], [place], [address], 17:33:24 metform in ER 1,000 mg tablet, extende d release 24hr (osmoti c) 2020 021 [facility], [address] [facility], [place], [address], 17:33:24 levothy roxine 175 mcg tablet 2020 021 [facility] [place], [address] , [place], [address], 17:32:58 Patient TargetsNo targets recorded. Patient Instructions Encounter Date Encounter Id Patient Instructions Last Modified By Organization Details Last Modified Time 03/28/2022 [id number] change insulin dose, check glucometer twice a week and bring diary to visit iveth Not available 03/28/2022 20:17:59 check on irritation along scalp line iveth Not available 03/28/2022 20:17:13 01/03/2022 [id number] check glucometer in morning if heart is beating rapidly, reduce size of meals, bring diary iveth Not available 01/05/2022 09:54:25 has optometry in November, check on results and follow up on PHQ 9 iveth Not available 01/04/2022 11:13:22 10/25/2021 [id number] eat regular meals, bring ddiary to next visit, needs to loose weight for knees iveth Not available 10/25/2021 20:11:38 check on ortho eval iveth Not available 10/25/2021 20:11:55 03/01/2021 [id number] check BS at 8 am and 4pm two days a week, use diary, get lab iveth Not available 03/01/2021 19:27:47 05/13/2020 [id number] back pain: care instructions [email or web address] Not available 05/13/2020 20:24:45 hypothyroidism: care instructions [email or web address] Not available 05/13/2020 20:24:45 begin MVI with iron x six months [email or web address] Not available 05/13/2020 20:24:44 02/10/2020 [id number] back pain: care instructions [email or web address] Not available 02/10/2020 19:15:31 Reason for Referral Community Care Referral for Productive cough screening for COVID Needed Referring Physician: Kartik Smallwood, Internal Medicine, Encounter Date: 08/13/2019 Community Care Referral for Productive cough Referring Physician: Kartik Smallwood Internal Medicine, Encounter Date: 08/13/2019 [facility] Referral for Productive cough Referring Physician: Kartik Smallwood Internal Medicine, Encounter Date: 08/13/2019 Manager Budget Referral for 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 call after 4 pm Referring Physician: Kartik Smallwood Internal Medicine, Encounter Date: 10/25/2021 Community Health Worker Refe rral for Microalbuminuric diabetic nephropathy Referring Physician: Amy Palomo, Family Medicine, Encounter Date: 05/09/2022 Results Created Date Observation Date Name Description Value Unit Range Abnormal Flag LastModifiedBy Organization Detail LastModifiedTime 05/24/2020 lab resul t white blood count 7.20 Not Available [facility] [address] [place], [address], 05/24/2020 14:44:36 05/24/2020 lab resul t hemoglobin 11.2 Not Available [facility] [address] [place], [address], 05/24/2020 14:44:36 05/24/2020 lab resul t platelet count 340 Not Available [facility] [address] [place], [address], 05/24/2020 14:44:36 05/22/19 21 05/21/2020 CBC w/ auto diff white blood count 7.20 Not Available [facility] [address] [place], [address], 05/21/2020 16:02:26 05/22/19 21 05/21/2020 CBC w/ auto diff hemoglobin 11.2 Not Available [facility] [address] [place], [address], 05/21/2020 16:02:26 05/22/19 21 05/21/2020 CBC w/ auto diff platelet count 340 Not Available [facility] [address] [place], [address], 05/21/2020 16:02:26 09/09/19 21 09/08/2020 CBC WBC Not Available [address], [address], 06/23/2020 10:51:46 09/09/19 21 09/08/2020 CBC HGB Not Available [facility] [address] [place] [address], [address], 06/23/2020 10:51:46 09/09/19 21 09/08/2020 CBC platelet count Not Available [address], [address], 06/23/2020 10:51:46 09/28/19 21 09/27/2020 CBC white blood count 7.76 Not Available [place] [facility] [address] [place] [address] LAURA Samson, [address], 09/27/2020 19:30:17 09/28/19 21 09/27/2020 CBC hemoglobin 11.5 Not Availa ble [place] [facility] [address] [place] [address] LAURA Samson, [address], 09/27/2020 19:30:17 09/28/19 21 09/27/2020 CBC platelet count 326 Not Available [place] [facility] [address] [place] [address] LAURA Samson, [address], 09/27/2020 19:30:17 09/28/19 21 09/27/2020 ESR (eryt hrocy te sedim entat ion rate) , blood white blood count 7.76 Not Available [place] [facility] [place], [address], 09/28/2020 14:38:26 09/28/19 21 09/27/2020 ESR (eryt hrocy te sedim entat ion rate) , blood hemoglobin 11.5 Not Available [facility] [address] [facility] [place], [address], 09/28/2020 14:38:26 09/28/19 21 09/27/2020 ESR (eryt hrocy te sedim entat ion rate) , blood platelet count 326 Not Available [place] [facility] [place], [address], 09/28/2020 14:38:26 09/01/19 22 08/31/2021 micro album in, urine creatinine 0.6 Not Available [facility] [address] [place] [address], [address], 10/28/2021 11:50:29 09/01/19 22 08/31/2021 micro album in, urine ALT 18 Not Available [facility] [address] [place] [address], [address], 10/28/2021 11:50:29 09/01/19 22 08/31/2021 micro album in, urine total cholesterol 232 high Not Available [facility] [address] [place] [address], [address], 10/28/2021 11:50:29 09/01/19 22 08/31/2021 micro album in, urine triglyceride s 173 high Not Available [address], [address], 10/28/2021 11:50:29 09/01/19 22 08/31/2021 micro album in, urine HDL 80 Not Available [facility] [address] [place] [address], [address], 10/28/2021 11:50:29 09/01/19 22 08/31/2021 micro album in, urine LDL 117 high Not Available [facility] [address] [place] [address], [address], 10/28/2021 11:50:29 09/01/19 22 08/31/2021 micro album in, urine hemoglobin A1C 10.85 high Not Available [address], [address], 10/28/2021 11:50:29 09/01/19 22 08/31/2021 micro album in, urine white blood count 9.20 Not Available [address], [address], 10/28/2021 11:50:29 09/01/19 22 08/31/2021 micro album in, urine hemoglobin 11.0 low Not Available [address], [address], 10/28/2021 11:50:29 09/01/19 22 08/31/2021 micro album in, urine platelet count 341 Not Available [address], [address], 10/28/2021 11:50:29 09/01/19 22 08/31/2021 micro album in, urine micro ratio 930 high Not Available [facility] [address] [place] [address], [address], 10/28/2021 11:50:29 09/01/19 22 08/31/2021 CBC creatinine 0.6 Not Availa ble [address], [address], 10/28/2021 11:50:28 09/01/19 22 08/31/2021 CBC ALT 18 Not Available [address], [address], 10/28/2021 11:50:28 09/01/19 22 08/31/2021 CBC total cholesterol 232 high Not Available [address], [address], 10/28/2021 11:50:28 09/01/19 22 08/31/2021 CBC triglyceride s 173 high Not Available [address], [address], 10/28/2021 11:50:28 09/01/19 22 08/31/2021 CBC HDL 80 Not Available [address], [address], 10/28/2021 11:50:28 09/01/19 22 08/31/2021 CBC LDL 117 high Not Available [address], [address], 10/28/2021 11:50:28 09/01/19 22 08/31/2021 CBC hemoglobin A1C 10.85 high Not Available [address], [address], 10/28/2021 11:50:28 09/01/19 22 08/31/2021 CBC white blood count 9.20 Not Available [address], [address], 10/28/2021 11:50:28 09/01/19 22 08/31/2021 CBC hemoglobin 11.0 low Not Availa ble [address], [address], 10/28/2021 11:50:28 09/01/19 22 08/31/2021 CBC platelet count 341 Not Available [address] [place], [address], 10/28/2021 11:50:28 09/01/19 22 08/31/2021 CBC micro ratio 930 high Not Avail able [address], [address], 10/28/2021 11:50:28 09/01/19 22 08/31/2021 hemog lobin A1C/h emogl obin total , QN, blood creatinine 0.6 Not Available [address], [address], 10/28/2021 11:50:28 09/01/19 22 08/31/2021 hemog lobin A1C/h emogl obin total , QN, blood ALT 18 Not Available [address], [address], 10/28/2021 11:50:28 09/01/19 22 08/31/2021 hemog lobin A1C/h emogl obin total , QN, blood total cholesterol 232 high Not Available [address], [address], 10/28/2021 11:50:28 09/01/19 22 08/31/2021 hemog lobin A1C/h emogl obin total , QN, blood triglyceride s 173 high Not Available [address], [address], 10/28/2021 11:50:28 09/01/19 22 08/31/2021 hemog lobin A1C/h emogl obin total , QN, blood HDL 80 Not Available [facility] [address] [place] [address], [address], 10/28/2021 11:50:28 09/01/19 22 08/31/2021 hemog lobin A1C/h emogl obin total , QN, blood LDL 117 high Not Available [facility] [address] [place] [address], [address], 10/28/2021 11:50:28 09/01/19 22 08/31/2021 hemog lobin A1C/h emogl obin total , QN, blood hemoglobin A1C 10.85 high Not Available [facility] [address] [place] [address], [address], 10/28/2021 11:50:28 09/01/19 22 08/31/2021 hemog lobin A1C/h emogl obin total , QN, blood white blood count 9.20 Not Available [facility] [address] [place] [address], [address], 10/28/2021 11:50:28 09/01/19 22 08/31/2021 hemog lobin A1C/h emogl obin total , QN, blood hemoglobin 11.0 low Not Available [facility] [address] [place] [address], [address], 10/28/2021 11:50:28 09/01/19 22 08/31/2021 hemog lobin A1C/h emogl obin total , QN, blood platelet count 341 Not Available [facility] [address] [place] [address], [address], 10/28/2021 11:50:28 09/01/19 22 08/31/2021 hemog lobin A1C/h emogl obin total , QN, blood micro ratio 930 high Not Available [facility] [address] [place] [address], [address], 10/28/2021 11:50:28 09/01/19 22 08/31/2021 lipid panel , blood creatinine 0.6 Not Available [facility] [address] [place] [address], [address], 10/28/2021 11:50:28 09/01/19 22 08/31/2021 lipid panel , blood ALT 18 Not Available [facility] [address] [place] [address], [address], 10/28/2021 11:50:28 09/01/19 22 08/31/2021 lipid panel , blood total cholesterol 232 high Not Available [address], [address], 10/28/2021 11:50:28 09/01/19 22 08/31/2021 lipid panel , blood triglyceride s 173 high Not Available [address], [address], 10/28/2021 11:50:28 09/01/19 22 08/31/2021 lipid panel , blood HDL 80 Not Available [facility] [address] [place] [address], [address], 10/28/2021 11:50:28 09/01/19 22 08/31/2021 lipid panel , blood LDL 117 high Not Available [facility] [address] [place] [address], [address], 10/28/2021 11:50:28 09/01/19 22 08/31/2021 lipid panel , blood hemoglobin A1C 10.85 high Not Available [address], [address], 10/28/2021 11:50:28 09/01/19 22 08/31/2021 lipid panel , blood white blood count 9.20 Not Available [address], [address], 10/28/2021 11:50:28 09/01/19 22 08/31/2021 lipid panel , blood hemoglobin 11.0 low Not Available [address], [address], 10/28/2021 11:50:28 09/01/19 22 08/31/2021 lipid panel , blood platelet count 341 Not Available [address], [address], 10/28/2021 11:50:28 09/01/19 22 08/31/2021 lipid panel , blood micro ratio 930 high Not Available [address], [address], 10/28/2021 11:50:28 09/01/19 22 08/31/2021 CMP, serum or plasm a creatinine 0.6 Not Available [address], [address], 10/28/2021 11:08:24 09/01/19 22 08/31/2021 CMP, serum or plasm a ALT 18 Not Available [facility] [address] [place] [address], [address], 10/28/2021 11:08:24 09/01/19 22 08/31/2021 CMP, serum or plasm a total cholesterol 232 high Not Available [address], [address], 10/28/2021 11:08:24 09/01/19 22 08/31/2021 CMP, serum or plasm a triglyceride s 173 high Not Available [address], [address], 10/28/2021 11:08:24 09/01/19 22 08/31/2021 CMP, serum or plasm a HDL 80 Not Available [facility] [address] [place] [address], [address], 10/28/2021 11:08:24 09/01/19 22 08/31/2021 CMP, serum or plasm a LDL 117 high Not Available [facility] [address] [place] [address], [address], 10/28/2021 11:08:24 09/01/19 22 08/31/2021 CMP, serum or plasm a hemoglobin A1C 10.85 high Not Available [address], [address], 10/28/2021 11:08:24 09/01/19 22 08/31/2021 CMP, serum or plasm a white blood count 9.20 Not Available [address], [address], 10/28/2021 11:08:24 09/01/19 22 08/31/2021 CMP, serum or plasm a hemoglobin 11.0 low Not Available [address], [address], 10/28/2021 11:08:24 09/01/19 22 08/31/2021 CMP, serum or plasm a platelet count 341 Not Available [address], [address], 10/28/2021 11:08:24 09/01/19 22 08/31/2021 CMP, serum or plasm a micro ratio 930 high Not Available [address], [address], 10/28/2021 11:08:24 09/01/19 22 08/31/2021 lipid panel , blood white blood count 9.20 Not Available [address], [address], 09/30/2021 19:32:52 09/01/19 22 08/31/2021 lipid panel , blood platelet count 341 Not Available [address], [address], 09/30/2021 19:32:52 09/01/19 22 08/31/2021 lipid panel , blood hemoglobin 11.0 low Not Available [address], [address], 09/30/2021 19:32:52 09/01/19 22 08/31/2021 lipid panel , blood creatinine 0.6 Not Available [address], [address], 09/30/2021 19:32:52 09/01/19 22 08/31/2021 lipid panel , blood ALT 18 Not Available [facility] [address] [place] [address], [address], 09/30/2021 19:32:52 09/01/19 22 08/31/2021 lipid panel , blood hemoglobin A1C 10.85 high Not Available [address], [address], 09/30/2021 19:32:52 09/01/19 22 08/31/2021 lipid panel , blood micro ratio 0.6 Not Available [address], [address], 09/30/2021 19:32:52 09/01/19 22 08/31/2021 lipid panel , blood total cholesterol 232 high Not Available [address], [address], 09/30/2021 19:32:52 09/01/19 22 08/31/2021 lipid panel , blood triglyceride s 173 high Not Available [address], [address], 09/30/2021 19:32:52 09/01/19 22 08/31/2021 lipid panel , blood HDL 80 Not Available [facility] [address] [place] [address], [address], 09/30/2021 19:32:52 09/01/19 22 08/31/2021 lipid panel , blood LDL 117 Not Available [facility] [address] [place] [address], [address], 09/30/2021 19:32:52 09/01/19 22 08/31/2021 micro album in, urine white blood count 9.20 Not Available [address], [address], 09/30/2021 19:32:52 09/01/19 22 08/31/2021 micro album in, urine platelet count 341 Not Available [address], [address], 09/30/2021 19:32:52 09/01/19 22 08/31/2021 micro album in, urine hemoglobin 11.0 low Not Available [address], [address], 09/30/2021 19:32:52 09/01/19 22 08/31/2021 micro album in, urine creatinine 0.6 Not Available [address], [address], 09/30/2021 19:32:52 09/01/19 22 08/31/2021 micro album in, urine ALT 18 Not Available [address], [address], 09/30/2021 19:32:52 09/01/19 22 08/31/2021 micro album in, urine hemoglobin A1C 10.85 high Not Available [address], [address], 09/30/2021 19:32:52 09/01/19 22 08/31/2021 micro album in, urine micro ratio 0.6 Not Available [address], [address], 09/30/2021 19:32:52 09/01/19 22 08/31/2021 micro album in, urine total cholesterol 232 high Not Available [address], [address], 09/30/2021 19:32:52 09/01/19 22 08/31/2021 micro album in, urine triglyceride s 173 high Not Available [address], [address], 09/30/2021 19:32:52 09/01/19 22 08/31/2021 micro album in, urine HDL 80 Not Available [facility] [address] [place] [address], [address], 09/30/2021 19:32:52 09/01/19 22 08/31/2021 micro album in, urine LDL 117 Not Available [facility] [address] [place] [address], [address], 09/30/2021 19:32:52 09/01/19 22 08/31/2021 hemog lobin A1C/h emogl obin total , QN, blood white blood count 9.20 Not Available [address], [address], 09/30/2021 19:32:52 09/01/19 22 08/31/2021 hemog lobin A1C/h emogl obin total , QN, blood platelet count 341 Not Available [address], [address], 09/30/2021 19:32:52 09/01/19 22 08/31/2021 hemog lobin A1C/h emogl obin total , QN, blood hemoglobin 11.0 low Not Available [address], [address], 09/30/2021 19:32:52 09/01/19 22 08/31/2021 hemog lobin A1C/h emogl obin total , QN, blood creatinine 0.6 Not Available [address], [address], 09/30/2021 19:32:52 09/01/19 22 08/31/2021 hemog lobin A1C/h emogl obin total , QN, blood ALT 18 Not Available [facility] [facility] [address] [place] [address], [address], 09/30/2021 19:32:52 09/01/19 22 08/31/2021 hemog lobin A1C/h emogl obin total , QN, blood hemoglobin A1C 10.85 high Not Available [address], [address], 09/30/2021 19:32:52 09/01/19 22 08/31/2021 hemog lobin A1C/h emogl obin total , QN, blood micro ratio 0.6 Not Available [facility] [address] [place] [address], [address], 09/30/2021 19:32:52 09/01/19 22 08/31/2021 hemog lobin A1C/h emogl obin total , QN, blood total cholesterol 232 high Not Available [address], [address], 09/30/2021 19:32:52 09/01/19 22 08/31/2021 hemog lobin A1C/h emogl obin total , QN, blood triglyceride s 173 high Not Available [address], [address], 09/30/2021 19:32:52 09/01/19 22 08/31/2021 hemog lobin A1C/h emogl obin total , QN, blood HDL 80 Not Available [facility] [address] [place] [address], [address], 09/30/2021 19:32:52 09/01/19 22 08/31/2021 hemog lobin A1C/h emogl obin total , QN, blood LDL 117 Not Available [facility] [address] [place] [address], [address], 09/30/2021 19:32:52 09/01/19 22 08/31/2021 CMP, serum or plasm a white blood count 9.20 Not Available [address], [address], 09/30/2021 19:32:52 09/01/19 22 08/31/2021 CMP, serum or plasm a platelet count 341 Not Available [address], [address], 09/30/2021 19:32:52 09/01/19 22 08/31/2021 CMP, serum or plasm a hemoglobin 11.0 low Not Available [address], [address], 09/30/2021 19:32:52 09/01/19 22 08/31/2021 CMP, serum or plasm a creatinine 0.6 Not Available [address], [address], 09/30/2021 19:32:52 09/01/19 22 08/31/2021 CMP, serum or plasm a ALT 18 Not Available [address], [address], 09/30/2021 19:32:52 09/01/19 22 08/31/2021 CMP, serum or plasm a hemoglobin A1C 10.85 high Not Available [address], [address], 09/30/2021 19:32:52 09/01/19 22 08/31/2021 CMP, serum or plasm a micro ratio 0.6 Not Available [address], [address], 09/30/2021 19:32:52 09/01/19 22 08/31/2021 CMP, serum or plasm a total cholesterol 232 high Not Available [address], [address], 09/30/2021 19:32:52 09/01/19 22 08/31/2021 CMP, serum or plasm a triglyceride s 173 high Not Available [address], [address], 09/30/2021 19:32:52 09/01/19 22 08/31/2021 CMP, serum or plasm a HDL 80 Not Available [facility] [address] [place] [address], [address], 09/30/2021 19:32:52 09/01/19 22 08/31/2021 CMP, serum or plasm a LDL 117 Not Available [facility] [address] [place] [address], [address], 09/30/2021 19:32:52 09/01/19 22 08/31/2021 CBC white blood count 9.20 Not Available [address], [address], 09/28/2021 17:02:26 09/01/19 22 08/31/2021 CBC platelet count 341 Not Available [address], [address], 09/28/2021 17:02:26 09/01/19 22 08/31/2021 CBC hemoglobin 11.0 low Not Availa ble [address], [address], 09/28/2021 17:02:26 09/01/19 22 08/31/2021 CBC creatinine 0.6 Not Availa ble [address], [address], 09/28/2021 17:02:26 09/01/19 22 08/31/2021 CBC ALT 18 Not Available [address], [address], 09/28/2021 17:02:26 09/01/19 22 08/31/2021 CBC hemoglobin A1C 10.85 high Not Available [address], [address], 09/28/2021 17:02:26 09/01/19 22 08/31/2021 CBC micro ratio 0.6 Not Avail able [address], [address], 09/28/2021 17:02:26 09/01/19 22 08/31/2021 CBC total cholesterol 232 high Not Available [address], [address], 09/28/2021 17:02:26 09/01/19 22 08/31/2021 CBC triglyceride s 173 high Not Available [address], [address], 09/28/2021 17:02:26 09/01/19 22 08/31/2021 CBC HDL 80 Not Available [address], [address], 09/28/2021 17:02:26 09/01/19 22 08/31/2021 CBC LDL 117 Not Available [address], [address], 09/28/2021 17:02:26 05/06/19 23 05/05/2022 CBC TSH 2.920 Not Available [address], [address], 05/07/2022 22:31:56 05/06/19 23 05/05/2022 CBC hemoglobin A1C 12.85 high Not Available [address], [address], 05/07/2022 22:31:56 05/06/19 23 05/05/2022 CBC creatinine 0.6 Not Availa ble [address], [address], 05/07/2022 22:31:56 05/06/19 23 05/05/2022 CBC ALT 19 Not Available [address], [address], 05/07/2022 22:31:56 05/06/19 23 05/05/2022 CBC WBC 6.74 Not Available [address], [address], 05/07/2022 22:31:56 05/06/19 23 05/05/2022 CBC HGB 9.8 low Not Available [address], [address], 05/07/2022 22:31:56 05/06/19 23 05/05/2022 CBC plt 589 high Not Available [address], [address], 05/07/2022 22:31:56 05/06/19 23 05/05/2022 CBC cholesterol 169 Not Avail able [address], [address], 05/07/2022 22:31:56 05/06/19 23 05/05/2022 CBC triglyceride s 89 Not Available [address], [address], 05/07/2022 22:31:56 05/06/19 23 05/05/2022 CBC HDL 53 Not Available [address], [address], 05/07/2022 22:31:56 05/06/19 23 05/05/2022 CBC LDL 98 Not Available [address], [address], 05/07/2022 22:31:56 05/06/19 23 05/05/2022 CMP, serum or plasm a TSH 2.920 Not Available [facility] [address] [place] [address], [address], 05/07/2022 22:31:56 05/06/19 23 05/05/2022 CMP, serum or plasm a hemoglobin A1C 12.85 high Not Available [address], [address], 05/07/2022 22:31:56 05/06/19 23 05/05/2022 CMP, serum or plasm a creatinine 0.6 Not Available [facility] [address] [place] [address], [address], 05/07/2022 22:31:56 05/06/19 23 05/05/2022 CMP, serum or plasm a ALT 19 Not Available [facility] [address] [place] [address], [address], 05/07/2022 22:31:56 05/06/19 23 05/05/2022 CMP, serum or plasm a WBC 6.74 Not Available [facility] [address] [place] [address], [address], 05/07/2022 22:31:56 05/06/19 23 05/05/2022 CMP, serum or plasm a HGB 9.8 low Not Available [facility] [address] [place] [address], [address], 05/07/2022 22:31:56 05/06/19 23 05/05/2022 CMP, serum or plasm a plt 589 high Not Available [facility] [address] [place] [address], [address], 05/07/2022 22:31:56 05/06/19 23 05/05/2022 CMP, serum or plasm a cholesterol 169 Not Available [facility] [address] [place] [address], [address], 05/07/2022 22:31:56 05/06/19 23 05/05/2022 CMP, serum or plasm a triglyceride s 89 Not Available [address], [address], 05/07/2022 22:31:56 05/06/19 23 05/05/2022 CMP, serum or plasm a HDL 53 Not Available [facility] [address] [place] [address], [address], 05/07/2022 22:31:56 05/06/19 23 05/05/2022 CMP, serum or plasm a LDL 98 Not Available [facility] [address] [place] [address], [address], 05/07/2022 22:31:56 05/06/19 23 05/05/2022 HbA1c (hemo globi n A1c), blood TSH 2.920 Not Available [address], [address], 05/07/2022 22:31:56 05/06/19 23 05/05/2022 HbA1c (hemo globi n A1c), blood hemoglobin A1C 12.85 high Not Available [address], [address], 05/07/2022 22:31:56 05/06/19 23 05/05/2022 HbA1c (hemo globi n A1c), blood creatinine 0.6 Not Available [address], [address], 05/07/2022 22:31:56 05/06/19 23 05/05/2022 HbA1c (hemo globi n A1c), blood ALT 19 Not Available [address], [address], 05/07/2022 22:31:56 05/06/19 23 05/05/2022 HbA1c (hemo globi n A1c), blood WBC 6.74 Not Available [address], [address], 05/07/2022 22:31:56 05/06/19 23 05/05/2022 HbA1c (hemo globi n A1c), blood HGB 9.8 low Not Available [facility] [address] [place] [address], [address], 05/07/2022 22:31:56 05/06/19 23 05/05/2022 HbA1c (hemo globi n A1c), blood plt 589 high Not Available [facility] [address] [place] [address], [address], 05/07/2022 22:31:56 05/06/19 23 05/05/2022 HbA1c (hemo globi n A1c), blood cholesterol 169 Not Available [facility] [address] [place] [address], [address], 05/07/2022 22:31:56 05/06/19 23 05/05/2022 HbA1c (hemo globi n A1c), blood triglyceride s 89 Not Available [address], [address], 05/07/2022 22:31:56 05/06/19 23 05/05/2022 HbA1c (hemo globi n A1c), blood HDL 53 Not Available [facility] [address] [place] [address], [address], 05/07/2022 22:31:56 05/06/19 23 05/05/2022 HbA1c (hemo globi n A1c), blood LDL 98 Not Available [facility] [address] [place] [address], [address], 05/07/2022 22:31:56 05/06/19 23 05/05/2022 TSH, serum or plasm a TSH 2.920 Not Available [facility] [address] [place] [address], [address], 05/07/2022 06:11:15 05/06/19 23 05/05/2022 TSH, serum or plasm a hemoglobin A1C 12.85 high Not Available [address], [address], 05/07/2022 06:11:15 05/06/19 23 05/05/2022 TSH, serum or plasm a creatinine 0.6 Not Available [facility] [address] [place] [address], [address], 05/07/2022 06:11:15 05/06/19 23 05/05/2022 TSH, serum or plasm a ALT 19 Not Available [facility] [address] [place] [address], [address], 05/07/2022 06:11:15 05/06/1905/05/2022 TSH, serum or plasm a WBC 6.74 Not Available [facility] [address] [place] [address], [address], 05/07/2022 06:11:15 05/06/19 23 05/05/2022 TSH, serum or plasm a HGB 9.8 low Not Available [facility] [address] [place] [address], [address], 05/07/2022 06:11:15 05/06/19 23 05/05/2022 TSH, serum or plasm a plt 589 high Not Available [facility] [address] [place] [address], [address], 05/07/2022 06:11:15 05/06/19 23 05/05/2022 TSH, serum or plasm a cholesterol 169 Not Available [address], [address], 05/07/2022 06:11:15 05/06/19 23 05/05/2022 TSH, serum or plasm a triglyceride s 89 Not Available [address], [address], 05/07/2022 06:11:15 05/06/19 23 05/05/2022 TSH, serum or plasm a HDL 53 Not Available [address], [address], 05/07/2022 06:11:15 05/06/19 23 05/05/2022 TSH, serum or plasm a LDL 98 Not Available [address], [address], 05/07/2022 06:11:15 05/06/19 23 05/05/2022 lipid panel , serum TSH 2.920 Not Available [address], [address], 05/08/2022 09:51:04 05/06/19 23 05/05/2022 lipid panel , serum hemoglobin A1C 12.85 high Not Available [address], [address], 05/08/2022 09:51:04 05/06/19 23 05/05/2022 lipid panel , serum creatinine 0.6 Not Available [address], [address], 05/08/2022 09:51:04 05/06/19 23 05/05/2022 lipid panel , serum ALT 19 Not Available [address], [address], 05/08/2022 09:51:04 05/06/19 23 05/05/2022 lipid panel , serum WBC 6.74 Not Available [address], [address], 05/08/2022 09:51:04 05/06/19 23 05/05/2022 lipid panel , serum HGB 9.8 low Not Available [address], [address], 05/08/2022 09:51:04 05/06/19 23 05/05/2022 lipid panel , serum plt 589 high Not Available [facility] [address] [place] [address], [address], 05/08/2022 09:51:04 05/06/19 23 05/05/2022 lipid panel , serum cholesterol 169 Not Available [facility] [address] [place] [address], [address], 05/08/2022 09:51:04 05/06/19 23 05/05/2022 lipid panel , serum triglyceride s 89 Not Available [address], [address], 05/08/2022 09:51:04 05/06/19 23 05/05/2022 lipid panel , serum HDL 53 Not Available [facility] [address] [place] [address], [address], 05/08/2022 09:51:04 05/06/19 23 05/05/2022 lipid panel , serum LDL 98 Not Available [facility] [address] [place] [address], [address], 05/08/2022 09:51:04 03/03/19 21 02/26/2020 XR, thora cic spine No observ ation record ed. [email or web address] Not Available 03/05/2020 13:22:58 06/02/19 21 05/21/2020 XR, knee, 3 view No observ ation record ed. [email or web address] [facility] [address] [place], [address], 06/03/2020 11:42:56 Result Notes None recorded. 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 Procedures Surgical History None recorded. Imaging Results Imaging Date Name Status LastModified by Organiz ation Details LastModified Time 02/26/2020 XR, thoracic [email or web address] Information not available 03/05/2020 13:22:58 05/21/2020 XR, knee, 3 view completed [email or web address] [facility] [address] [place] [address], [address], 06/03/2020 11:42:56 Procedure Notes None recorded. Medical Equipment None Reported. Allergies No known drug allergies Medications Name Sig Start Date Stop Date Status Note LastModified by Organization Details LastModified Time melatonin 10 mg caps TAKE ONE TABLET BY MOUTH AT BEDTIME active Not Available Not Available No t Available metformin 500 mg tablet take 2 tablet by oral route 2 times every day with morning and evening meals 05/13 completed Not Available Not Available Not Available levothyrox ine 175 mcg tablet Take 1 tablet every day by oral route as directed for 30 days. 07/05 completed Not Available Not Available Not Available Novolin 70/30 U-100 Insulin 100 unit/mL subcutaneo us suspension 25 U in am; 28 before dinner 2022 active BRANDY: [id number] 2 EXP: 25 x2vial ASM: NZF4M1 1 Exp: 0254/2 07/18 LRB: MZF3W8 6 2024-0 1-31 x 1 vial LCA: MZF2N8 2 024 x2 Vials 2 LRB: 4 MZF0Y1 0 x 2 vials0 024 LZFY11 0 MV 03/01/19 2212/3 02/2022 LZFX80 2 MV 03/01/19 023 LZFV70 7 x1 lrb2021 KZFK44 509/ 22 KZFM71 303 23 LZFS01 512 JZFN59 408 23 LZFT64 82 vials 2024 ws Not Available Not Available Not Available levothyrox ine 137 mcg tablet TAKE 1 TABLET BY MOUTH DIRECTED active Not Available Not Available No t Available glyburide 5 mg tablet TAKE ONE TABLET BY MOUTH EVERY DAY BEFORE BREAKFAST active Not Available Not Available No t Available Novolin N NPH U-100 Insulin isophane 100 unit/mL subcutaneo us susp 40 u in evening 05/09 completed LCA: MZF1P9 0 024, MZF1E7 0 0245/1 11/17 LRB: 4 MZF1E7 0 x 2 vials 3 LZFV40 2 x 1 11/09 lrb2021 KZFK16 704 23 KZFR29 6003/20 KZFN93 906 23 LZFS54 KZFR29 61 MZF2S6 1 x 2 ws Not Available Not Available Not Available fluconazol e 150 mg tablet TAKE 1 TABLET (150 MG) BY MOUTH ONE TIME FOR 1 DOSE. 10/25 completed Not Available Not Available Not Available ciprofloxa george 500 mg tablet TAKE 1 TABLET BY MOUTH TWICE DAILY FOR 10 DAYS 04/28 /2021 completed Not Available Not Available Not Available aspirin 81 mg tablet,del ayed release TAKE ONE TABLET BY MOUTH ONCE DAILY active Not Available Not Available No t Available lisinopril 10 mg tablet TAKE ONE TABLET BY MOUTH EVERY DAY active Not Available Not Available No t Available gabapentin 100 mg capsule TAKE ONE CAPSULE BY MOUTH THREE TIMES DAILY active Not Available Not Available No t Available Novolog U-100 Insulin aspart 100 unit/mL subcutaneo us solution inject 15 Unit by subcutane ous route 3 times every day as per insulin sliding scale protocol 10/24 completed Not Available Not Available Not Available metformin ER 500 mg tablet,ext ended release 24 hr TAKE TWO TABLETS BY MOUTH TWICE A DAY WITH MEALS active Not Available Not Available No t Available naproxen 500 mg tablet TAKE ONE TABLET BY MOUTH EVERY DAY active Not Available Not Available No t Available metformin ER 1,000 mg tablet,ext ended release 24hr (osmotic) Take 1 tablet twice a day by oral route with meals for 90 days. 07/05 completed Not Available Not Available Not Available Pain Relief (with salicylami de) 162 mg-110 mg-152 mg-32.4 mg tablet take 1 tablet by oral route every day 10/25 completed Not Available Not Available Not Available FeroSul 325 mg (65 mg iron) tablet TAKE 2 TABLETS BY MOUTH EVERY OTHER DAY active Not Available Not Available No t Available melatonin 10 mg tablet Take 1 tablet by oral route. 05/09 completed Not Available Not Available Not Available melatonin 10 mg capsule TAKE ONE TABLET BY MOUTH AT BEDTIME active Not Available Not Available No t Available Vitals Date Recorded Body weight Systolic blood pressure Diastolic blood pressure Provider Name and Address Organization Details Last Updated DateTime 03/01/2021 96100.64 g 132 mm[Hg] 77 mm[Hg] Kartik Smallwood MD [address] [facility] [place], [address], [place] [facility] 03/01/2021 19:25:01 Date Recorded Body weight Systolic blood pressure Diastolic blood pressure Provider Name and Address Organization Details Last Updated DateTime 10/25/2021 46047.77 g 141 mm[Hg] 73 mm[Hg] Kartik Smallwood MD [address] [facility] [place], [address], [facility] 10/25/2021 20:00:59 Date Recorded Body weight Systolic blood pressure Diastolic blood pressure Provider Name and Address Organization Details Last Updated DateTime 01/03/2022 96660.01 g 149 mm[Hg] 73 mm[Hg] Kartik Smallwood MD [address] [place], [place] [address], [address], [facility] 01/04/2022 11:01:48 Date Recorded Body weight Systolic blood pressure Diastolic blood pressure Provider Name and Address Organization Details Last Updated DateTime 03/28/2022 18528.55 g 140 mm[Hg] 72 mm[Hg] Kartik Smallwood MD [address] [place], [place] [address], [address], [facility] 03/28/2022 20:08:48 Date Recorded Systolic blood pressure Diastolic blood pressure Provider Name and Address Organization Details Last Updated DateTime 03/18/2019 123 mm[Hg] 72 mm[Hg] Not Available [facility] 0 09/15/2019 12:57:02 Date Recorded Systolic blood pressure Diastolic blood pressure Provider Name and Address Organization Details Last Updated DateTime 01/30/2019 142 mm[Hg] 74 mm[Hg] Not Available [facility] 0 09/15/2019 12:57:02 Social History None recorded. Functional Status None recorded. Mental Status None recorded. Family History Nothing Reported. Medical History No medical history recorded. Gynecological HistoryNo gynecological history recorded. Obstetrics History GPAL:G 0 P 0 0 0 0 Past Encounters Encounter ID Performer Location Encounter Start Date Encounter Closed Date Diagnosis/Indication Diagnosis SNOMED-CT Code [id number] Kartik Smallwood MD [facility] [address] [place] [address] [place] [address] 08/13/2019 15:02:15 08/13/2019 16:42:22 Productive cough [id number] Traci Hatch NP [facility] [address] [place] [address] [place] [address] 08/18/2019 13:49:58 08/18/2019 14:07:34 SARS-CoV-2 [id number] Geovani Gomez MD [facility] [address] [place] [address] 02/10/2020 18:29:15 02/11/2020 10:33:13 Low back pain 495338441 Chronic back pain 486209 002 [id number] Geovani Gomez MD [facility] [address] [place] [address] 05/13/2020 17:45:03 05/13/2020 20:38:54 Low back pain 799696112 Hypothyroidism 53777643 Anemia 715007188 History of urinary tract infection 5021102620050 Type 2 samantha betes mellitus without complication [id number] Kartik Smallwood MD [facility] [address] [place] [address] 06/22/2020 17:58:08 06/23/2020 11:09:15 Type 2 diabetes mellitus 15550594 Hypothyroidism 27157981 Type 2 samantha betes mellitus without complication 690558227 [id number] Kartik Smallwood MD [facility] [address] [place] [address] 07/05/2020 16:53:57 07/05/2020 17:54:05 Peripheral neuropathy due to type 2 diabetes mellitus 8660126412082 Type 2 samantha betes mellitus without complication 976956151 Type 2 samantha betes mellitus 78310117 [id number] Kartik Smallwood MD [facility] [address] [place] [address] 08/02/2020 16:17:33 08/03/2020 14:23:05 Peripheral neuropathy due to type 2 diabetes mellitus 8007322405786 Type 2 samantha betes mellitus 05316162 Type 2 samantha betes mellitus without complication 931516851 [id number] Jana Robison NP [facility] [address] [place] [address] 10/20/2020 11:56:58 10/20/2020 22:07:43 Type 2 diabetes mellitus without complication 370606124 Headache 29039857 [id number] Kartik Smallwood MD [facility] [address] [place] [address] 03/01/2021 18:21:53 03/01/2021 19:08:27 Retinopathy due to diabetes mellitus 9840886 Type 2 samantha betes mellitus 47773484 [id number] Kartik Smallwood MD [facility] [address] [place] [address] 10/25/2021 18:56:10 10/25/2021 19:38:53 Retinopathy due to diabetes mellitus 3220583 Hypothyroidism 35956484 Type 2 samantha betes mellitus 69293088 Anemia 231122998 Type 2 samantha betes mellitus without complication 015588587 Renewal of prescription 228720034 Insomnia 563559180 [id number] Kartik Smallwood MD [facility] [address] [place] [address] 01/03/2022 17:54:12 01/03/2022 18:42:52 Retinopathy due to diabetes mellitus 1664718 Hypothyroidism 00374706 Type 2 samantha betes mellitus 21893269 Anemia 454883180 Type 2 samantha betes mellitus without complication 277012785 Renewal of prescription 833669311 [id number] Kartik Smallwood MD [facility] [address] [place] [address] 03/28/2022 19:10:54 03/28/2022 19:44:59 Type 2 diabetes mellitus without complication 928759099 Proliferat jasmin retinopathy due to diabetes mellitus 99695190 Hypothyroidism 42084894 Backache 710811557 [id number] AMY PALOMO, [facility] [address] [place] [address] 05/09/2022 13:53:29 05/09/2022 15:36:35 Microalbuminuric diabetic nephropathy 324524706 Health Concerns Section Related Observation LastModified by Organization Detai ls LastModified Time None Recorded Concern Status LastModified by Organization Details LastModified Time None Recorded Advance Directives Directive None Recorded Payers Encounter Date Sequence Insurance Name Policy Number Policy Chavarria Covered Member ID Chavarria Member ID Guarantor Name 05/09/2022 SLIDING FEE SCHEDULE - DISCOUNT Xena Enrique 03/28/2022 SLIDING FEE SCHEDULE - DISCOUNT Xena Enrique 01/03/2022 SLIDING FEE SCHEDULE - DISCOUNT Xena Enrique 10/25/2021 SLIDING FEE SCHEDULE - DISCOUNT Xena Enrique 03/01/2021 SLIDING FEE SCHEDULE - DISCOUNT Xena Enrique 10/20/2020 SLIDING FEE SCHEDULE - DISCOUNT Xena Enrique 08/02/2020 SLIDING FEE SCHEDULE - DISCOUNT Xena Enrique 07/05/2020 SLIDING FEE SCHEDULE - DISCOUNT Xena Enrique 06/22/2020 SLIDING FEE SCHEDULE - DISCOUNT Xena Enrique 05/13/2020 SLIDING FEE SCHEDULE - DISCOUNT Xena Enrique 02/10/2020 SLIDING FEE SCHEDULE - DISCOUNT Xena Enrique 08/18/2019 SLIDING FEE SCHEDULE - DISCOUNT Xena Enrique 08/13/2019 SLIDING FEE SCHEDULE - DISCOUNT Xena Enrique Notes Date Note Type Note Provider Name and Address Organization Details Recorded Time 08/13/2019 text/html HPI Notes: cough and shortness of breathe without fever Kartik Smallwood MD [address] [facility] [place], [address], [facility] [employer] 08/19/2019 16:28:13 02/10/2020 text/html HPI Notes: Back Pain Reported by patient. 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, legs sorse sitting, both feet are numb, no sores, using Tylenol and asa, type 2 for around 10 years, sounds like Novolin N 40 U once a day and Novolog 15 U once a day but diff to tell, also metformin and asprin, opto about 1 year ago Kartik Smallwood MD [address] [facility], [address], [facility] [employer] 06/23/2020 10:56:48 07/05/2020 text/html HPI Notes: toes are numb Kartik Smallwood MD [address] [place], [address], [facility] 07/05/2020 17:36:55 08/02/2020 text/html HPI Notes: neuropathic discomfort mostly in toes, wears one size greater than usual to decr discomfort. LMP several years ago Kartik Smallwood [place] [facility] [place], [address], [facility] [employer] 08/02/2020 19:36:51 10/20/2020 text/html HPI Notes: 55 y.o. F with history of diabetes evaluated via phone due to a strong headache 2 days ago accompanied by a little nausea, neck pain, dizziness. Her symptoms have resolved except for a headache which continues. Her headaches is relieved temporarily by ibuprofen. She feels the pain mostly in the occipital area and in her neck Denies fever, chills, chest pain, SOB, vision changes, fainting, falls, weakness Notes other symptoms that she's had for some time now: burning eyes, palpitations, fatigue. Not sleeping well. Last eye exam recently. BP recently 120/70-80 Eating less than normal Drinking 4 bottles of water Last blood sugar check: 280 yesterday afternoon Sometimes she checks in the morning before eating and sugars are ~180 No record of recent A1c, CMP, lipid panel Recent CBC w/ diff shows mild decrease in Hgb and elevated ESR - history of increased ESR Multiple UAs showing UTIs - not done since 04/2020 Last BMP 03/2020 Last TSH/free T4 04/2020 Due for vitals, A1c, microalbumin, repeat UA, repeat TSH/free T4, liver function tests, lipid panel FOBT pending Jana Robison NP [address] [place], [address], [facility] 10/20/2020 12:48:16 03/01/2021 text/html HPI Notes: eatin g sm meals, occ glucometers 200+, feet are sl numb but not painful Kartik Smallwood MD [address] [place], [address], [facility] [employer] 03/01/2021 19:27:57 05/09/2022 text/html HPI Notes: Autho r called pt with [facility] interpreting. Pt of Dr. Smallwood's to discuss medication regimine and plan given call from lab of A1C 12.85 and BG >400. She is feeling ok, but was interested in lab results. She notes higher sugars are a result of not exercising and poor diet. She notes interest in working with [facility]. AMY PALOMO, ANP-BC [address] [place], [address], [facility] 07/18/2022 11:20:23 OBGyn Episode No OBEpisode recorded.
[2023-08-17 22:00] VITALS: BP 161/69; PULSE 84; RESP 18; O2SAT 99
== END 2023-08-17 22:02 | disposition home or self-care (01) ==
LOC: ED 21:53
PROVIDERS: Emergency Provider Internal Medicine
DX: L03.115 Cellulitis of right lower limb (principal)
CPT/HCPCS: 99283

== ENCOUNTER 2024-09-20 18:24 | Emergency (ER) | payer OTHER, SELFPAY ==
--- OUTSIDE RECORDS SUMMARY | 2024-09-20 18:26 | XMS_ITS | Clinical Summary ---
Author Organization [employer] Address [address] [place] [address] Care Team Providers Care Sas Architect Name Role Phone Cyn Cha DO Primary Care Provider Allergies No known active allergies Medications ASPIRIN 81 MG TAB, DELAYED RELEASE take 1 tablet (81 mg) by oral route once daily 0 01/22/20 08 Active BLOOD GLUCOSE TEST STRIPSIndications: DM type 2 (diabetes mellitus, type 2) (HC) test blood sugars 1-3 times daily. 100 3 09/15/19 09 Active FREESTYLE TEST STRIPSIndications: Type II or unspecified type diabetes mellitus without mention of complication, not stated as uncontrolled (HC) test blood sugars three times daily. 100 11 11/21/19 09 Active INSULIN SYRINGE-NEEDLE U-100 1/2 ML 31 X 5/16Indications:T ype II or unspecified type diabetes mellitus without mention of complication, not stated as uncontrolled (HC) use as directed 1 box 11 11/21/19 09 Active polyethylene glycoL (MIRALAX) 17 gram/dose powderIndications: BRBPR (bright red blood per rectum),Hemorrhoid s, external Take 17 g by mouth once daily. 1 jar 1 05/31/19 17 Active levothyroxine (SYNTHROID) 137 mcg tabletIndications: Other specified hypothyroidism TAKE 1 TABLET BY MOUTH BEFORE BREAKFAST. 90 tablet 2 06/23/19 19 Active metFORMIN (GLUCOPHAGE) 1,000 mg tabletIndications: Diabetes mellitus without complication (HC) TAKE 1 TABLET BY MOUTH 2 TIMES DAILY WITH MEALS. 180 tablet 09/17/19 19 Active ferrous sulfate, 65 mg elemental, tablet [...] EVERY DAY Active gabapentin (NEURONTIN) 300 mg capsuleIndications :Chronic bilateral thoracic back pain,Neuropathic pain Take 1 Capsule (300 mg) by mouth three times daily. 270 Capsule 1 08/19/19 23 Active tiZANidine (ZANAFLEX) 2 mg tabletIndications: Chronic bilateral thoracic back pain Take 1-2 Tablets (2-4 mg) by mouth at bedtime. 40 Tablet 08/19/19 23 Active celecoxib (CELEBREX) 200 mg capsuleIndications :Bilateral primary osteoarthritis of knee Take 1 Capsule (200 mg) by mouth two times daily with meals. 60 Capsule 2 10/17/19 23 Active methylPREDNISolone (Medrol, Cam,) 4 mg tabletIndications: Lumbar radiculopathy Take by mouth as instructed per packaging. 21 Tablet 05/10/19 24 Active glyBURIDE (MICRONASE; DIABETA) 5 mg tabletIndications: Uncontrolled type 2 diabetes mellitus with hyperglycemia, with long-term current use of insulin (HC) Take 1 Tablet by mouth before breakfast. Active insulin NPH-regular (NOVOLIN FLEXPEN; HUMULIN KWIKPEN) 100 unit/mL (70-30) penIndications:Unc ontrolled type 2 diabetes mellitus with hyperglycemia, with long-term current use of insulin (HC) Inject 30-40 units subcutaneous two times daily before meals. 20 mL 2 05/18/19 24 Active insulin NPH isophane, U-100, (NOVOLIN-N, HUMULIN-N) 100 unit/mL susp injectionIndicatio ns:Uncontrolled type 2 diabetes mellitus with hyperglycemia, with long-term current use of insulin (HC) Inject 60 units subcutaneous before bedtime. 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 Plan: Pap/HPV due 03/2026 Chronic right shoulder pain 12/28/2016 Dental decay 12/28/2016 Other insomnia 12/28/2016 Internal hemorrhoids 06/20/2016 Overview (06/20/2016): Colonoscopy 05/2016 hemorrhoids repeat in 10 years Helicobacter pylori (H. pylori) 11/15/2009 Hypothyroidism 06/11/2009 Type II or unspecified type diabetes mellitus without mention of complication, not stated as uncontrolled 04/03/2008 Hyperlipidemia LDL goal < 100 Encounters Date Type Department Care Team Description 07/04/2024 2:00 PM CDT Ancillary Procedure [facility] & [address] [address] from Last 3 Months Immunizations Immunization Administration Dates Next Due Influenza, IIV3 (Age [...] Paying Living Expenses Not on file 04/13/2021 Comments No Sex and Gender Information Value Date Recorded Sex Assigned at Not on file Legal Sex Female 7:28 AM SURGERY CENTER ADMINISTRATOR Gender Identity Not on file Sexual Orientation [...] 84 06/25/2023 4:22 PM CDT Temperature 36.7 C (98 F) 11/29/2022 2:34 PM CDT Respiratory Rate 20 05/30/2016 8:14 AM CDT Oxygen Saturation 99% 06/25/2023 4:22 PM CDT Inhaled Oxygen Concentration - - Weight 88.5 kg (195 lb 3.2 oz) 06/25/2023 4:22 P M CDT Height 150.4 cm (4' 11.21) 05/12/2022 3:22 PM C DT Body Mass Index 39.14 05/12/2022 3:22 PM CDT Plan of Treatment Health Maintenance Due Date Last Done Comments Depression screening for age 12+ 1978 HIV for age 15-65 1981 Hepatitis C screening for ag e 18-79 1984 Hepatitis B series for 19+ ( 1 of 3 - 19+ 3-dose series) 1985 Pneumococcal series for age 50+ (2 of 2 - PCV) 01/20/2016 01/19/2015 Mammogram for age 45-75 04/13/2022 04/13/19 22, 01/03/2013, 05/05/2011, Additional history exists BMI (ht and wt on same day) for age 18+ 05/13/2023 05/12/2022, 07/22/2021, 07/23/2018, Additional history exists COVID-19 vaccine series ( season) 2023 03/18/2021, 06/12/2020, 05/22/2020 Tetanus booster 01/24/2024 01/23/2014, 02/27/2004 Influenza Vaccine (#1) 2024 , 04/22/2018, 12/11/2016, Additional history exists Pap test for age 21-65 04/13/2026 , 04/13/2021, 04/17/2011, Additional history exists Colonoscopy through age 75 06/20/202606/20, 06/20/2016, 06/20/2016 Lipids for age 45-75 05/17/2028 05/18/2023, 05/12/2022, 04/13/2021, Additional history exists Zoster (shingles) series for age 50+ Completed 06/25/2023, 07/22/2021 Procedures Procedure Name Priority Date/Time Associated Diagnosis Comments ECHO TTE COMPLETE WO CONTRAST Routine 07/04/2024 2:44 PM CDT Edema LIPID PANEL W REFLEX MEASURED LDL Routine 05/18/2023 3:52 PM CDT Hyperlipidemia with target LDL less than 100 Uncontrolled type 2 diabetes mellitus with hyperglycemia, with long-term current use of insulin (HC) XR MAMMO BILAT SCREENING Routine 04/13/2021 4:45 PM SURGERY CENTER ADMINISTRATOR Encounter for screening mammogram for malignant neoplasm of breast BALANCE SCREWHEAD POLISHER THIN PREP PAP SCREEN IMAGED Routine 04/13/2021 4:00 PM SURGERY CENTER ADMINISTRATOR Screening for cervical cancer COLONOSCOPY 06/20/2016 9:38 AM CDT from Last 3 Months or Most Recently Relevant to Health Maintenance Results * ECHO TTE COMPLETE WO CONTRAST (07/04/2024 2:44 PM CDT) AORTIC VALVE MEAN PG 8 mmHg EJECTION FRACTION 71 % PEAK TR VELOCITY 3.1 m/s LVEDD 3.9 cm EJECTION FRACTION 65 - 70% Anatomical Region Laterality Modality Ultrasound 07/04/2024 2:15 PM CDT Narrative 07/04/2024 2:53 PM CDT ECHOCARDIOGRAM XENA HAYS : 1965 59 years Study Date: 07/04/2024 2:15:44 PM Gender: F BP: 161/78 mmHg Height: 150.00 cm BSA: 1.83 m Weight: 89.00 kg Tech: ANN Referring MD: MILLIE SOSA Site: [facility] Reading Location: Mobile-OP Patient Location: Outpatient. Procedure: 2D, Color Doppler and Spectral Doppler. Indication for study: Edema Cardiac Rhythm: Regular.Study quality: Good. Final Impressions: 1. Normal LV size, normal wall thickness, normal function with an estimated EF of 65 - 70%. 2. Right ventricular cavity size is normal, global systolic RV function is normal. 3. No significant valve disease detected. Comparison There are no prior studies on this patient for comparison purposes. Chamber Sizes and Function Normal left ventricular size, normal wall thickness, normal global systolic function with an estimated EF of 65 - 70%. No resting regional wall motion abnormality visualized. Left atrial size is normal. Left atrial pressure is normal. Right ventricular cavity size is normal, global systolic RV function is normal. RV wall thickness is normal. The right atrium is normal. Right atrial volume index is 23 ml/m . Right atrial area is 18 cm . The pulmonary artery is of normal size and origin. The sinus of Valsalva is normal sized. The ascending aorta is normal sized. Valves, RV Pressures and Diastolic Function The aortic valve is normal in structure and trileaflet, no stenosis and no regurgitation. The mitral valve is normal in structure, trace mitral regurgitation. Normal diastolic function. The tricuspid valve is normal in structure, mild tricuspid regurgitation. The tricuspid regurgitant velocity is 3.1 m/s, the estimated right ventricular systolic pressure is 38 mmHg plus right atrial pressure. The pulmonic valve is normal. No pulmonary regurgitation. Masses, Effusion, Shunts There is no pericardial effusion. The inferior vena cava is normal sized, respiratory size variation greater than 50%. No left to right shunting was detected by limited color flow Doppler interrogation of the interatrial septum. MEASUREMENTS AND CALCULATIONS 2-D Measurements and LV Function: LVID (d) 3.9 cm LV FS% (2D) 36 % LVID (s) 2.5 cm LVOT diameter 2.0 cm IVS (d) 0.7 cm HR 89 bpm LVPW (d) 0.9 cm LA Vol index 32 ml/m2 Ao Sinus 2.8 cm RA Vol index 23 ml/m2 Ao Sinus ULN 3.7 cm RA area 18 cm Asc Ao 3.0 cm RV Basal Diam 3.3 cm Asc Ao ULN 3.8 cm LA 3.6 cm Diastology: Mitral Tissue Doppler E Peak 1.1 m/s e', Septum 0.06 m/s A Peak 1.1 m/s e', Lateral 0.07 m/s E/A 1.0 E/e' Average 15.85 DT 103 msec Aortic Valve: Vmax 1.9 m/s MARIANELA (V) 2.43 cm VTI 0.45 m MARIANELA (I) 2.32 cm LVOT V max 1.5 m/s Max PG 15 mmHg LVOT VTI 0.35 m Mean PG 8 mmHg SV 105 ml Dim Index 0.77 SV index 57 ml/m CO 9.3 l/min CI 5.1 l/min/m Mitral Valve: MVA 7.4 cm MV P 1/2 30 msec Tricuspid Valve and estimated PA pressures: TR Vmax 3.1 m/s TAPSE 2.6 cm TR maxG 38 mmHg . This study was interpreted by an [facility] accredited facility. CC: [facility]. Final Procedure Note Keron Davidson MD - 07/04/2024 ECHOCARDIOGRAM XENA HAYS : 1965 59 years Study Date: 07/04/2024 2:15:44 PM Gender: F BP: 161/78 mmHg Height: 150.00 cm BSA: 1.83 m Weight: 89.00 kg Tech: ANN Referring MD: MILLIE SOSA Site: [facility] Reading Location: Mobile-OP Patient Location: Outpatient. Procedure: 2D, Color Doppler and Spectral Doppler. Indication for study: Edema Cardiac Rhythm: Regular.Study quality: Good. Final Impressions: 1. Normal LV size, normal wall thickness, normal function with anestimated EF of 65 - 70%. 2. Right ventricular cavity size is normal, global systolic RV functionis normal. 3. No significant valve disease detected. Comparison There are no prior studies on this patient for comparison purposes. Chamber Sizes and Function Normal left ventricular size, normal wall thickness, normal globalsystolic function with an estimated EF of 65 - 70%. No resting regionalwall motion abnormality visualized. Left atrial size is normal. Leftatrial pressure is normal. Right ventricular cavity size is normal, globalsystolic RV function is normal. RV wall thickness is normal. The rightatrium is normal. Right atrial volume index is 23 ml/m . Right atrialarea is 18 cm . The pulmonary artery is of normal size and origin. Thesinus of Valsalva is normal sized. The ascending aorta is normal sized. Valves, RV Pressures and Diastolic Function The aortic valve is normal in structure and trileaflet, no stenosis and noregurgitation. The mitral valve is normal in structure, trace mitralregurgitation. Normal diastolic function. The tricuspid valve is normal instructure, mild tricuspid regurgitation. The tricuspid regurgitantvelocity is 3.1 m/s, the estimated right ventricular systolic pressure is38 mmHg plus right atrial pressure. The pulmonic valve is normal. Nopulmonary regurgitation. Masses, Effusion, Shunts There is no pericardial effusion. The inferior vena cava is normal sized,respiratory size variation greater than 50%. No left to right shunting wasdetected by limited color flow Doppler interrogation of the interatrialseptum. MEASUREMENTS AND CALCULATIONS 2-D Measurements and LV Function: LVID (d) 3.9 cm LV FS% (2D) 36 % LVID (s) 2.5 cm LVOT diameter 2.0 cm IVS (d) 0.7 cm HR 89 bpm LVPW (d) 0.9 cm LA Vol index 32 ml/m2 Ao Sinus 2.8 cm RA Vol index 23 ml/m2 Ao Sinus ULN 3.7 cm RA area 18 cm Asc Ao 3.0 cm RV Basal Diam 3.3 cm Asc Ao ULN 3.8 cm LA 3.6 cm Diastology: Mitral Tissue Doppler E Peak 1.1 m/s e', Septum 0.06 m/s A Peak 1.1 m/s e', Lateral 0.07 m/s E/A 1.0 E/e' Average 15.85 DT 103 msec Aortic Valve: Vmax 1.9 m/s MARIANELA (V) 2.43 cm VTI 0.45 m MARIANELA (I) 2.32 cm LVOT V max 1.5 m/s Max PG 15 mmHg LVOT VTI 0.35 m Mean PG 8 mmHg SV 105 ml Dim Index 0.77 SV index 57 ml/m CO 9.3 l/min CI 5.1 l/min/m Mitral Valve: MVA 7.4 cm MV P 1/2 30 msec Tricuspid Valve and estimated PA pressures: TR Vmax 3.1 m/s TAPSE 2.6 cm TR maxG 38 mmHg . This study was interpreted by an [facility] accredited facility. CC: [facility] (med records) [facility]. Final us Millie Sosa MD ECHO ORD Final Resu lt * (ABNORMAL) LIPID PANEL W REFLEX MEASURED LDL (05/18/2023 3:52 PM CDT) CHOLESTEROL,TOTAL 252(H) 100 - 199 mg/dL 05/18/2023 9:38 PM CDT [facility] Comment: Cholesterol, Total Reference Ranges Desirable <200 mg/dL Borderline 200-239 mg/dL High >=240 mg/dL TRIGLYCERIDES 129 <150 mg/dL 05/18/2023 9:38 PM CDT [facility] HDL CHOLESTEROL 111 >40 mg/dL 9:38 PM CDT [facility] TRAL LABORATORY NON-HDL CHOLESTEROL 141 <145 mg/dl 05/18/2023 9:38 PM CDT [facility] TRAL LABORATORY CHOL/HDL RATIO 2.27 <4.50 05/18/2023 9:38 PM CDT [facility] TRAL LABOR[facility] LDL CHOLESTEROL 115 <=130 mg/dL 05/18/2023 9:38 PM CDT [facility] TRAL LABORATORY VLDL CHOLESTEROL 26 <=30 mg/dL 05/18/2023 9:38 PM CDT [facility] TRAL LABORATORY PROVIDER ORDERED STATUS RANDOM 05/18/2023 9:38 PM CDT [facility] TRAL LABORATORY Blood BLOOD SPECIMEN / Unknown Butterfly / Unknown 05/18/2023 3:52 PM CDT 05/18/2023 3:55 PM CDT us Cyn Cha DO CHEMISTRY Final Resul t [facility] [address] [place] [address], [place] * XR MAMMO BILAT SCREENING (04/13/2021 4:45 PM SURGERY CENTER ADMINISTRATOR) Anatomical Region Laterality Modality BREASTS, Breast Left, Breast Right Bilateral Mammography Impressions 04/14/2021 3:10 PM SURGERY CENTER ADMINISTRATOR There is no radiographic evidence for malignancy. Recommend annual mammograms. MAMMOGRAM ASSESSMENT: ACR 1 Negative PATIENTS: You will also receive a letter with your examination results in an easy to read format. If you have questions about your results, please contact your referring provider. Narrative 04/14/2021 3:10 PM SURGERY CENTER ADMINISTRATOR For Patients: As a result of the Cures Act, medical imaging exams and procedure reports are released immediately into your electronic medical record. You may view this report before your referring provider. If you have questions, please contact your health care provider. XR MAMMO BILAT SCREENING [[id number]] CLINICAL HISTORY: This is an asymptomatic 56 y.o. patient. INDICATION FOR EXAM: Mammogram Screening. TECHNIQUE: CC & MLO views were obtained. This study was evaluated with the assistance of Computer-Aided Detection. COMPARISON FILM: Yes 01/03/13 [facility] FINDINGS: The breasts are almost entirely fatty. There are no dominant masses, suspicious micro calcifications or areas of architectural distortion. Cyn Cha DO MAMMO Final Resul t * BALANCE SCREWHEAD POLISHER THIN PREP PAP SCREEN IMAGED [[id number]] (04/13/2021 4:00 PM SURGERY CENTER ADMINISTRATOR) Case Report Gynecologic Cytology Report Case: [id number] Authorizing Provider: Cyn Cha DO Collected: 04/13/2021 1600 Ordering Location: [facility] Received: 04/13/2021 1752 Clinic First Screen: Nav Ibarra Specimen: BALANCE SCREWHEAD POLISHER ThinPrep Vial Screening, Cervical 04/22/2021 10:18 AM SURGERY CENTER ADMINISTRATOR [facility] [employer] LABORATORY-C ENTRAL LABORATORY INTERPRETATION/ RESULT NEGATIVE FOR INTRAEPITHELIAL LESION OR MALIGNANCY (NIL) (none) 04/22/2021 10:18 AM SURGERY CENTER ADMINISTRATOR [facility] LABORATORY-C ENTRAL LABORATORY at 1018 SURGERY CENTER ADMINISTRATOR ORGANISM(S) Shift in kenn suggestive of bacterial vaginosis 04/22/2021 10:18 AM SURGERY CENTER ADMINISTRATOR [facility] [employer] [facility] ENTRAL LABORATORY SPECIMEN ADEQUACY Satisfactory for evaluation Endocervical component present 04/22/2021 10:18 AM SURGERY CENTER ADMINISTRATOR [facility] [employer] [facility] ENTRAL LABORATORY HPV REQUEST HPV and PAP 04/22/2021 10:18 AM SURGERY CENTER ADMINISTRATOR [facility] [employer] [facility] ENTRAL LABORATORY Date of LMP n/a 04/22/2021 10:18 AM SURGERY CENTER ADMINISTRATOR [facility] ENTRAL LABORATORY Last Pap Date 2015 04/22/2021 10:18 AM SURGERY CENTER ADMINISTRATOR [facility] [employer] [facility] ENTRAL LABORATORY Last Pap Result NIL 10:18 AM SURGERY CENTER ADMINISTRATOR [facility] ENTRAL LABORATORY Abnormal Pap or Wood Bx in last 5 years No 04/22/2021 10:18 AM SURGERY CENTER ADMINISTRATOR [facility] [employer] [facility] ENTRAL LABORATORY Menstrual Status Postmenopausal 04/22/2021 10:18 AM SURGERY CENTER ADMINISTRATOR [facility] ENTRAR LABORATORY Wood Bx Done Today No 04/22/2021 10:18 AM [facility] ENTRAR LABORATORY Additional Information None given 04/22/2021 10:18 AM SURGERY CENTER ADMINISTRATOR [facility] ENTRAR LABORATORY Comment: Cytology is screened at [facility] - [address] [address] and [facility] - [address] [place] [address] and [facility] - [address] [place] [address] Interpreted at [facility] - [address], [place] [address] Automated Review Successful 04/22/2021 10:18 AM SURGERY CENTER ADMINISTRATOR [facility] ENTRAR LABORATORY Comment:Specimen processed s uccessfully by automated solar manufacturer's representative device, ThinPrep Imaging System, [employer] ANCILLARY TESTING BALANCE SCREWHEAD POLISHER HPV Ordered, Please see separate report 04/22/2021 10:18 AM SURGERY CENTER ADMINISTRATOR [facility] ENTRAR LABORATORY Note The pap test is a screening technique, not a diagnostic procedure. It is used primarily to screen for squamous cancers and precursor lesions. Published studies have shown that it is subject to both false negative and false positive results. The pap test should not be used as the sole means to diagnose or exclude pre-malignant and malignant lesions. 04/22/2021 10:18 AM SURGERY CENTER ADMINISTRATOR [facility] Other (Cervical) Non-Blood / Unknown 04/13/2021 4:00 PM SURGERY CENTER ADMINISTRATOR 04/13/2021 5:52 PM SURGERY CENTER ADMINISTRATOR Cyn Cha DO PATHOLOGY/CYTOLOGY Final Re sult [facility]AL LABORATORY [address] [place] [address], [place] * COLONOSCOPY (06/20/2016 9:38 AM CDT) [...] adequate candidate for conscious sedation. The [id number] was passed through the anus and advanced [...] reponse to care. [facility] flow[facility]ets and nursing notes for moderate sedation details. Total physician intraservice time was 21 minutes. Ming Sethi MD 06/20/2016 11:41:55 AM This report has been signed electronically. Note Initiated On: 06/20/2016 9:38 AM Procedure Code(s): --- Professional --- 19352, Colonoscopy, flexible; diagnostic, including collection of specimen(s) bybrushing or washing, when performed (separateprocedure) Diagnosis Code(s): --- Professional --- K64.8, Other hemorrhoids K92.2, Gastrointestinal hemorrhage,unspecified CPT copyright 2016 [employer]. All rights reserved. The codes documented in this report are preliminary and upon form grader operator reviewmay be revised to meet current compliance requirements. Scope In: 11:14:19 AM Scope Withdrawal Time 0 hours 9 minutes 57 seconds Scope Out: 11:33:20 AM us Ming Sethi MD PROCEDURE ORD Final Res ult from Last 3 Months or Most Recently Relevant to Health Maintenance Care Teams Sas Architect Relationship Specialty Start Date End Date Cyn Cha DO [address] [place] [address] PCP - General Family Practice 02/28/18
[2024-09-20 18:54] VITALS: BP 101/65; PULSE 83; RESP 18; TEMP 37; O2SAT 98; BMI 39.0
--- NOTE | 2024-09-20 19:10 | CRLHL7_ITS ---
For Patients: As a result of the Century Cures Act, medical imaging exams and procedure reports are released immediately into your electronic medical record. You may view this report before your referring provider. If you have questions, please contact your health care provider. INDICATION: Back pain, cough COMPARISON: 04/05/2022 TECHNIQUE: 1 view chest radiograph. FINDINGS: Devices: None. Lung volumes are good. No focal or diffuse opacities. No pulmonary edema. No pleural effusion. No pneumothorax. No pneumomediastinum. Heart size is normal. Bones: Degenerative change in the spine. No acute findings. IMPRESSION: Lungs clear. No acute findings. Dictated by Rosy Calero MD @ 09/20/2024 8:34:53 PM (Electronically Signed)
--- NOTE | 2024-09-20 19:24 | ED.GENADULT ---
HPI - General Adult General Date Seen: 09/20/24 Chief complaint: Unspecified Complaint, Adult Stated complaint: Chest, Back pain/ feeling unwell Time Seen by Provider: 09/20/24 18:31 History of Present Illness HPI narrative: Patient is a 59-year-old woman, [place] speaking, residence life coordinator is used to obtain history. She notes that she has not felt well since Sunday, presents to the ER on Sunday. She has been having pain throughout her back, a little bit of a cough and sore throat, no fever. She has felt short of breath, and notes that the pain is pleuritic when specifically asked. She has been taking Tylenol at home, she says she has been finding it hard to even do things at home because when ever she uses her arms or moves around she has pain in her back. Today she also has a headache in the back of her head. She has not had significant urinary symptoms and has not had vomiting or diarrhea. She does not smoke, but is exposed through her to secondhand smoke. Past medical history notable for diabetes, hypertension. Related Data Home Medications ?Medication ?Instructions ?Recorded ?Confirmed acetaminophen PO 08/17/23 05/21/24 aspirin .Route 08/17/23 05/21/24 gabapentin 300 mg capsule 300 mg PO 3XD 08/17/23 09/20/24 insulin asp prt-insulin aspart subcut 08/17/23 05/21/24 levothyroxine .Route 08/17/23 05/21/24 lisinopril .Route 08/17/23 05/21/24 metformin .Route 08/17/23 05/21/24 celecoxib 200 mg capsule 200 mg PO DAILY PRN 09/20/24 09/20/24 hydrochlorothiazide 12.5 mg capsule 12.5 mg PO DAILY 09/20/24 09/20/24 levothyroxine 137 mcg tablet mcg PO 09/20/24 lisinopril 10 mg tablet 10 mg PO DAILY 09/20/24 09/20/24 metformin 500 mg tablet,extended 1,000 mg PO BID 09/20/24 09/20/24 release 24 hr Previous Rx's ?Medication ?Instructions ?Recorded hydrochlorothiazide 25 mg tablet 25 mg PO DAILY #14 tabs 09/20/24 Allergies Allergy/AdvReac Type Severity Reaction Status Date / Time No Known Drug Allergies Allergy Verified 05/21/24 15:46 Review of Systems Status of ROS: Reports: 6 or more systems reviewed and unremarkable except as noted in History and below [facility] Social History Smoking Status: Never smoker Do you use any of these nicotine containing products: None Second hand tobacco smoke exposure: No How often do you have a drink containing alcohol: never How often do you have six or more drinks on one occasion: Never AUDIT-C Alcohol total score: 0 Non-prescribed substance use: denies use service: No Exam Narrative: Exam Narrative: Vital signs reviewed In general, alert, nontoxic middle-aged woman. Head: Normocephalic, atraumatic. Eyes: Sclera clear. Pupils equal and reactive. ENT: Mucous membranes moist. Throat is normal, no exudate or edema. TMs normal bilaterally. Neck: Supple without adenopathy. No meningeal signs. Heart: Regular rate and rhythm without murmur. Lungs: Clear. No increased work of breathing, crackles or wheezes. Back: She has diffuse muscular tenderness including the trapezius and rhomboids as well as para scapular musculature. Mild bilateral CVA tenderness. Abdomen: Soft, nontender to palpation. Extremities: Well perfused, pulses intact. No significant edema. Neurologic: Alert, conversant. Speech fluent, face symmetric. Moves all extremities equally. Skin: Warm, dry well perfused. Affect: Normal. Const: Vital Signs, click to edit/add: Vital Signs - 24 hr 09/20/24 18:54 09/20/24 21:00 Temperature 98.6 F Pulse Rate [Pulse Oximeter] 83 73 Respiratory Rate 18 16 Blood Pressure [Ri ght Upper Arm] 101/65 154/77 H Pulse Oximetry 98 98 Oxygen Delivery Me thod Room Air Room Air Course Course ED Course: Overall, exam is fairly benign. She does have some reproducible tenderness in her back and her back pain seems likely to be muscular. Chest x-ray some basic labs including a urine, will give her some Toradol to see if that helps with her pain. Given that symptoms are pleuritic and she cannot be ruled out by PERC criteria, will get a D-dimer, clinically my suspicion of PE as a cause for her symptoms is relatively low. I do not think this represents acute coronary syndrome given the type of symptoms she is describing, duration and associated symptoms. She does not have any findings on exam to suggest meningitis. Neurologic exam is normal. Labs here are most notable for mildly elevated potassium initially of 5.3 and a creatinine of 1.6, BUN of 47. Looking back through her records, last creatinine was 0.8 back in April. She had and hemoglobin H 1 C 14, diabetes seems to be fairly poorly controlled in general. Her blood sugar here tonight was 250. No evidence of acidosis, CO2 was 23. At that point, I placed an IV, gave her L of normal saline. She did have a chest x-ray which by my review did not show any acute findings, read as negative by Radiology. Her D-dimer was 0.54, normal for age. And given my a low clinical suspicion I think that is adequate to rule out PE. With her worsened renal function and complaints of muscular pain I did do a CK and this was normal at 105. Her CRP was likewise normal at 0.9 and urinalysis was heavily contaminated with many squamous cells and bacteria but 0-2 red cells and 0-2 white cells. Following fluids, her labs remain at roughly the same. Her potassium is 5.5, creatinine 1.5, BUN 47. I have reviewed all this with her. I did discuss this briefly with the hospitalist as well in terms of how to best manage this for her as an outpatient. I do not think she requires inpatient management at this, there is no evidence here of a hyperkalemic emergency based on levels and lack of symptoms. I am going to have her hold her lisinopril, increase her hydrochlorothiazide to 25 mg daily. I gave her a new prescription for this. All this was discussed with her with the residence life coordinator. Regarding her symptoms that she came in with, myalgias, headache, cough, sore throat, this seems likely to be viral, and for now would manage with Tylenol, she does have a p.r.n. prescription for Celebrex which for now probably is okay to take. I also gave her prescription for Flexeril to try if she would like for muscle pains. Stressed the importance of follow-up with her primary clinic early next week, she says she sees Dr. Sosa at [facility]. Also discussed reasons to return. Vital Signs Vital signs: Initial Vital Signs Temperature 98.6 F 09/20/24 18:54 Temperature Source Temporal Artery Scan 09/20/24 18:54 Pulse Rate 83 09/20/24 18:54 Respiratory Rate 18 09/20/24 18:54 Blood Pressure 101/65 09/20/24 18:54 Blood Pressure Mean 77 09/20/24 18:54 Pulse Oximetry 98 09/20/24 18:54 Oxygen Delivery Method Room Air 09/20/24 18:54 Vital Signs Temperature 98.6 F 09/20/24 18:54 Pulse Rate 83 09/20/24 18:54 Respiratory Rate 18 09/20/24 18:54 Blood Pressure 101/65 09/20/24 18:54 Pulse Oximetry 98 09/20/24 18:54 Oxygen Delivery Method Room Air 09/20/24 18:54 Temperature 98.6 F 09/20/24 18:54 Pulse Rate 73 09/20/24 21:00 Respiratory Rate 16 09/20/24 21:00 Blood Pressure 154/77 H 09/20/24 21:00 Pulse Oximetry 98 09/20/24 21:00 Oxygen Delivery Method Room Air 09/20/24 21:00 Medications Administered Medications: Discontinued Medications Generic Name Dose Route Start Last Admin Trade Name Freq PRN Reason Stop Dose Admin Sodium Chloride 1,000 mls @ 1,000 mls/hr 09/20/24 20:00 09/20/24 21:19 0.9 % Sodium Chloride 1000 Ml IV 09/20/24 20:59 Infused .Q1H KHURRAM Infusion Ketorolac Tromethamine 30 mg 09/20/24 19:09 09/20/24 19:40 Ketorolac 30 Mg/Ml Inj IM 09/20/24 19:10 30 mg ONCE ONE Administration Medical Decision Making Lab Data Labs: Lab Results 09/20/24 09/20/24 09/20/24 Range/Units 19:18 19:31 20:01 WBC 5.17 (4.50-11.00) K/uL RBC 4.40 (4.00-5.20) m/uL Hgb 12.1 (12.0-16.0) gm/dL Hct 36.6 (33.0-51.0) % MCV 83 (80-100) fL MCH 28 (26-34) pg MCHC 33 (32-36) gm/dL RDW Coeff of John 12.2 (11.5-15.5) % Plt Count 299 (140-440) K/uL Neut % (Auto) 62.1 (42.0-72.0) % Lymph % (Auto) 25.1 (20-44) % [place] % (Auto) 9.3 (0.0-11.0) % Eos % (Auto) 2.7 (0.0-7.0) % Baso % (Auto) 0.4 (0.0-3.0) % Neut # (Auto) 3.21 (1.7-7.0) K/uL Lymph # (Auto) 1.30 (0.90-2.90) K/uL [place] # (Auto) 0.50 (0.00-0.90) K/UL Eos # (Auto) 0.14 (0.00-0.50) K/uL Baso # (Auto) 0.02 (0.00-0.30) K/uL Abs Immat Gran (auto) 0.02 (0.00-0.30) K/uL Imm/Tot Granulo (auto) 0.4 % D-Dimer Quant (PE/DVT) 0.54 H (0.00-0.50) ug/ml Sodium 133 L (135-149) mmol/L Potassium 5.3 H (3.6-5.1) mmol/L Chloride 104 (96-114) mmol/L Carbon Dioxide 23 (20-32) mmol/L Anion Gap 6 L (7-15) mEq/L BUN 47 H (7-30) mg/dL Creatinine 1.6 H (0.5-1.5) mg/dL Estimated Creat Clear 31.70 Estimated GFR 37 ml/min Glucose 250 H (60-115) mg/dL Calcium 9.5 (8.4-10.6) mg/dL Total Creatine Kinase 105 (41-117) U/L C-Reactive Protein 0.9 (0.5-1.0) mg/dL Urine Color Yellow (Yellow) Urine Appearance Cloudy A (Clear) Urine pH 5.0 (5.0-8.5) Ur Specific [place] >= 1.030 (1.000-1.030) Urine Protein 3+ A (Negative) Urine Glucose (UA) Trace A (Negative) Urine Ketones Trace A (Negative) Urine Blood Trace-intact A (Negative) Urine Nitrite Negative (Negative) Urine Bilirubin Negative (Negative) Urine Urobilinogen 0.2 (0.2-1.0) Ur Leukocyte Esterase Negative (Negative) Urine RBC 0-2 (0-2) Urine WBC 0-2 (0-5) Ur Squamous Epith Cells Many A (None-Few) Urine Bacteria Many A (None) 09/20/24 Range/Units 21:17 WBC (4.50-11.00) K/uL RBC (4.00-5.20) m/uL Hgb (12.0-16.0) gm/dL Hct (33.0-51.0) % MCV (80-100) fL MCH (26-34) pg MCHC (32-36) gm/dL RDW Coeff of John (11.5-15.5) % Plt Count (140-440) K/uL Neut % (Auto) (42.0-72.0) % Lymph % (Auto) (20-44) % [place] % (Auto) (0.0-11.0) % Eos % (Auto) (0.0-7.0) % Baso % (Auto) (0.0-3.0) % Neut # (Auto) (1.7-7.0) K/uL Lymph # (Auto) (0.90-2.90) K/uL [place] # (Auto) (0.00-0.90) K/UL Eos # (Auto) (0.00-0.50) K/uL Baso # (Auto) (0.00-0.30) K/uL Abs Immat Gran (auto) (0.00-0.30) K/uL Imm/Tot Granulo (auto) % D-Dimer Quant (PE/DVT) (0.00-0.50) ug/ml Sodium 134 L (135-149) mmol/L Potassium 5.5 H (3.6-5.1) mmol/L Chloride 107 (96-114) mmol/L Carbon Dioxide 21 (20-32) mmol/L Anion Gap 6 L (7-15) mEq/L BUN 47 H (7-30) mg/dL Creatinine 1.5 (0.5-1.5) mg/dL Estimated Creat Clear 33.82 Estimated GFR 40 ml/min Glucose 224 H (60-115) mg/dL Calcium 9.2 (8.4-10.6) mg/dL Total Creatine Kinase (41-117) U/L C-Reactive Protein (0.5-1.0) mg/dL Urine Color (Yellow) Urine Appearance (Clear) Urine pH (5.0-8.5) Ur Specific [place] (1.000-1.030) Urine Protein (Negative) Urine Glucose (UA) (Negative) Urine Ketones (Negative) Urine Blood (Negative) Urine Nitrite (Negative) Urine Bilirubin (Negative) Urine Urobilinogen (0.2-1.0) Ur Leukocyte Esterase (Negative) Urine RBC (0-2) Urine WBC (0-5) Ur Squamous Epith Cells (None-Few) Urine Bacteria (None) Imaging Data Chest x-ray: Attestation: I have reviewed the pertinent imaging results. Radiologist's impression: [place] [address] Diagnostic Imaging Report Patient: Xena Watson MR#: [id number] : 1965 Acct:[id number] Loc: ED Service Date: 09/20/[address]: Ordering Physician: Michelle Cosme M.D. Date of Service: 09/20/24 Procedure(s): XR chest 1V portable Accession Number(s): [id number] cc: Michelle Cosme M.D.; Provider,Not a Local~ For Patients: As a result of the Cures Act, medical imaging exams and procedure reports are released immediately into your electronic medical record. You may view this report before your referring provider. If you have questions, please contact your health care provider. INDICATION: Back pain, cough COMPARISON: 04/05/2022 TECHNIQUE: 1 view chest radiograph. FINDINGS: Devices: None. Lung volumes are good. No focal or diffuse opacities. No pulmonary edema. No pleural effusion. No pneumothorax. No pneumomediastinum. Heart size is normal. Bones: Degenerative change in the spine. No acute findings. IMPRESSION: Lungs clear. No acute findings. Dictated by Rosy Calero MD @ 09/20/2024 8:34:53 PM Discharge Plan Discharge Clinical Impression: Nonspecific syndrome suggestive of viral illness, Hyperkalemia Patient Disposition: Home, Self-Care Condition: Stable Instructions: Hyperkalemia (ED), Viral Syndrome (ED) Additional Instructions: Your x-ray tonight does not show any evidence of pneumonia, and your blood work overall is reassuring. I think your symptoms may be related to a viral illness, but if you are feeling significantly worse, have severe pain, fevers, vomiting, significant difficulty breathing or any other significant changes, return for re-evaluation. 1 thing that you do have on tonight's labs is mildly abnormal kidney function as well as mildly elevated potassium. A result, I would like you to discontinue the lisinopril that you have been taking. I would like he did take a larger dose of hydrochlorothiazide. I have prescribed this for you, but if you are not able to fill the prescription right away, you can take two 12.5 mg tablets instead. This has been your normal dose up until now. Please make an appointment to follow-up at [facility] early next week for recheck. You can use Tylenol 1000 mg 3 times daily as needed for muscle aches and headache. I also wrote a prescription for a muscle relaxer that you can try. Avoid medications like ibuprofen, Aleve, Naprosyn as these are more difficult on your kidneys. For now, it is okay to continue your celecoxib prn. I would discuss this further with your primary doctor. Prescriptions: New hydrochlorothiazide 25 mg tablet 25 mg PO DAILY Qty: 14 2RF No Action acetaminophen PO metformin .Route aspirin .Route levothyroxine .Route lisinopril .Route insulin asp prt-insulin aspart [Novolog Mix 70-30FlexPen U-100] subcut gabapentin 300 mg capsule 300 mg PO 3XD celecoxib 200 mg capsule 200 mg PO DAILY PRN levothyroxine 137 mcg tablet PO lisinopril 10 mg tablet 10 mg PO DAILY hydrochlorothiazide 12.5 mg capsule 12.5 mg PO DAILY metformin 500 mg tablet extended release 24 hr 1,000 mg PO BID Follow Up/Referrals: Provider,Not a Local [Primary Care Provider, Family Practice] Stand Alone Forms: [employer] Info Instructions
[2024-09-20 19:32] LABS: Appearance Urine Cloudy (Clear)
[2024-09-20 19:41] LABS: Hematocrit 36.6 % (33.0-51.0); Hemoglobin* 12.1 gm/dL (12.0-16.0); Immature Granulocytes Abs Auto 0.02 K/uL (0.00-0.30); Immature Granulocytes Pct Auto 0.4 %; Lymphocytes Absolute Auto 1.30 K/uL (0.90-2.90); Mean Corpuscular HGB Conc 33 gm/dL (32-36); Mean Corpuscular Hemoglobin 28 pg (26-34); Mean Corpuscular Volume 83 fL (80-100); RDW Coefficient of Variation % 12.2 % (11.5-15.5); Red Blood Count 4.40 m/uL (4.00-5.20); Slide Review Reflex No; White Blood Count* 5.17 K/uL (4.50-11.00)
[2024-09-20 19:53] LABS: Chloride* 104 mmol/L (96-114); Potassium* 5.3 mmol/L (3.6-5.1); Sodium* 133 mmol/L (135-149)
[2024-09-20 19:56] LABS: Anion Gap 6 mEq/L (7-15); Blood Urea Nitrogen* 47 mg/dL (7-30); Calcium* 9.5 mg/dL (8.4-10.6); Carbon Dioxide* 23 mmol/L (20-32); Creatinine* 1.6 mg/dL (0.5-1.5); Est. Creatinine Clearance* 31.70; Estimated Glomerular Filt Rate 37 ml/min; Glucose* 250 mg/dL (60-115)
[2024-09-20 20:02] LABS: D Dimer Quantitative* 0.54 ug/ml (0.00-0.50)
[2024-09-20 20:17] LABS: Creatine Kinase* 105 U/L (41-117)
[2024-09-20 21:00] VITALS: BP 154/77; PULSE 73; RESP 16; O2SAT 98
[2024-09-20 22:12] LABS: Chloride* 107 mmol/L (96-114); Potassium* 5.5 mmol/L (3.6-5.1); Sodium* 134 mmol/L (135-149)
[2024-09-20 22:15] LABS: Anion Gap 6 mEq/L (7-15); Blood Urea Nitrogen* 47 mg/dL (7-30); Calcium* 9.2 mg/dL (8.4-10.6); Carbon Dioxide* 21 mmol/L (20-32); Creatinine* 1.5 mg/dL (0.5-1.5); Est. Creatinine Clearance* 33.82; Estimated Glomerular Filt Rate 40 ml/min; Glucose* 224 mg/dL (60-115)
== END 2024-09-20 23:37 | disposition home or self-care (01) ==
PROVIDERS: Emergency Provider Emergency Medicine
DX: E11.65 Type 2 diabetes mellitus with hyperglycemia (principal); N17.9 Acute kidney failure, unspecified; M54.6 Pain in thoracic spine
CPT/HCPCS: 36415; 71045; 80048; 81001; 82550; 85025; 85379; 86140; 87086; 96372; 99284; J1885; J7030

== ENCOUNTER 2024-10-02 19:30 | Emergency (ER) | payer OTHER, SELFPAY ==
--- OUTSIDE RECORDS SUMMARY | 2024-10-02 19:32 | XMS_ITS | Clinical Summary ---
Author Organization [facility] Address [address] [place] [id number] Care Team Providers Care Test Director Name Role Phone Cyn Cha DO Primary [...] Description 07/04/2024 2:00 PM CDT Ancillary Procedure [facility] & [address] [address] from Last 3 Months Immunizations Immunization Administration [...] on file Legal Sex Female 7:28 AM MEDICAL STAFF SPECIALIST Gender Identity Not on file Sexual Orientation [...] MAMMO BILAT SCREENING Routine 04/13/2021 4:45 PM MEDICAL STAFF SPECIALIST Encounter for screening mammogram for malignant neoplasm of breast SPR[place] LAYER THIN PREP PAP SCREEN IMAGED Routine 04/13/2021 4:00 PM MEDICAL STAFF SPECIALIST Screening for cervical cancer COLONOSCOPY 06/20/2016 9:38 [...] Tech: ANN Referring MD: MILLIE SOSA Site: [facility] Reading Location: Mobile-OP Patient Location: [...] . This study was interpreted by an [facility] accredited facility. CC: [facility] (med [facility]) [facility]. Final Procedure Note Keron Davidson MD - 07/04/2024 ECHOCARDIOGRAM XENA HAYS : 1965 59 years Study Date: 07/04/2024 2:15:44 PM Gender: F BP: 161/78 mmHg Height: 150.00 cm BSA: 1.83 m Weight: 89.00 kg Tech: ANN Referring MD: MILLIE SOSA Site: [facility] Reading Location: Mobile-OP Patient Location: [...] interpreted by an [facility] accredited facility. CC: [facility] (med records) [facility]. Final us Millie Sosa MD ECHO ORD Final Resu lt * (ABNORMAL) LIPID PANEL W REFLEX MEASURED LDL (05/18/2023 3:52 PM CDT) CHOLESTEROL,TOTAL 252(H) 100 - 199 mg/dL 05/18/2023 9:38 PM CDT [facility] Comment: Cholesterol, Total Reference Ranges Desirable <200 mg/dL Borderline 200-239 mg/dL High >=240 mg/dL TRIGLYCERIDES 129 <150 mg/dL 05/18/2023 9:38 PM CDT [facility] HDL CHOLESTEROL 111 >40 mg/dL 9:38 PM CDT [facility] NON-HDL CHOLESTEROL 141 <145 mg/dl 05/18/2023 9:38 PM CDT [facility] CHOL/HDL RATIO 2.27 <4.50 05/18/2023 9:38 PM CDT [facility] LDL CHOLESTEROL 115 <=130 mg/dL 05/18/2023 9:38 PM CDT [facility] VLDL CHOLESTEROL 26 <=30 mg/dL 05/18/2023 9:38 PM CDT [facility] PROVIDER ORDERED STATUS RANDOM 05/18/2023 9:38 PM CDT [facility] Blood BLOOD SPECIMEN / Unknown Butterfly / Unknown 05/18/2023 3:52 PM CDT 05/18/2023 3:55 PM CDT us Cyn Cha DO CHEMISTRY Final Resul t [facility] [address] [place] [address], [place] * XR MAMMO BILAT SCREENING (04/13/2021 4:45 PM MEDICAL STAFF SPECIALIST) Anatomical Region Laterality Modality BREASTS, Breast Left, Breast Right Bilateral Mammography Impressions 04/14/2021 3:10 PM MEDICAL STAFF SPECIALIST There is no radiographic evidence for malignancy. Recommend annual mammograms. MAMMOGRAM ASSESSMENT: ACR 1 Negative PATIENTS: You will also receive a letter with your examination results in an easy to read format. If you have questions about your results, please contact your referring provider. Narrative 04/14/2021 3:10 PM MEDICAL STAFF SPECIALIST For Patients: As a result of the Cures Act, medical imaging exams and procedure reports are released immediately into your electronic medical record. You may view this report before your referring provider. If you have questions, please contact your health care provider. XR MAMMO BILAT SCREENING [[id number]] CLINICAL HISTORY: This is an asymptomatic 56 y.o. patient. INDICATION FOR EXAM: Mammogram Screening. TECHNIQUE: CC & MLO views were obtained. This study was evaluated with the assistance of Computer-Aided Detection. COMPARISON FILM: Yes 01/03/13 [facility] FINDINGS: The breasts are almost entirely fatty. There are no dominant masses, suspicious micro calcifications or areas of architectural distortion. Cyn Cha DO MAMMO Final Resul t * SPRING LAYER THIN PREP PAP SCREEN IMAGED [[id number]] (04/13/2021 4:00 PM MEDICAL STAFF SPECIALIST) Case Report Gynecologic Cytology Report Case: [id number] Authorizing Provider: Cyn Cha DO Collected: 04/13/2021 1600 Ordering Location: [facility] Received: 04/13/2021 1752 Clinic First Screen: Nav Ibarra Specimen: SPRING LAYER ThinPrep Vial Screening, Cervical 04/22/2021 10:18 AM MEDICAL STAFF SPECIALIST [facility] [employer] LABORATORY-C ENTRAL LABORATORY INTERPRETATION/ RESULT NEGATIVE FOR INTRAEPITHELIAL LESION OR MALIGNANCY (NIL) (none) 04/22/2021 10:18 AM MEDICAL STAFF SPECIALIST [facility]OR[facility]-C ENTRAL LABORATORY at 1018 MEDICAL STAFF SPECIALIST ORGANISM(S) Shift in kenn suggestive of bacterial vaginosis 04/22/2021 10:18 AM MEDICAL STAFF SPECIALIST [facility] [employer] [facility] ENTRAL LABORATORY SPECIMEN ADEQUACY Satisfactory for evaluation Endocervical component present 04/22/2021 10:18 AM MEDICAL STAFF SPECIALIST [facility] [employer] [facility] ENTRAL LABORATORY HPV REQUEST HPV and PAP 04/22/2021 10:18 AM MEDICAL STAFF SPECIALIST [facility] [employer] [facility] ENTRAL LAB[facility] Date of LMP n/a 04/22/2021 10:18 AM MEDICAL STAFF SPECIALIST [facility] ENTRAL LABORATORY Last Pap Date 2015 04/22/2021 10:18 AM MEDICAL STAFF SPECIALIST [facility] [employer] [facility] ENTRAL LABORAT[facility] Last Pap Result NIL 10:18 AM MEDICAL STAFF SPECIALIST [facility] ENTRAL LABORATORY Abnormal Pap or [place] Bx in last 5 years No 04/22/2021 10:18 AM MEDICAL STAFF SPECIALIST [facility] [employer] [facility] ENTRAL LAB[facility]ATORY Menstrual Status Postmenopausal 04/22/2021 10:18 AM MEDICAL STAFF SPECIALIST [facility] ENTRNE LABORATORY [place] Bx Done Today No 04/22/2021 10:18 AM [facility] ENTRNE LABORATORY Additional Information None given 04/22/2021 10:18 AM MEDICAL STAFF SPECIALIST [facility] ENTRNE LABORATORY Comment: Cytology is screened at [facility] - [address], [place] [address] and [facility] - [address] [place] [address] [address] [facility] - [address] [place] [address] Interpreted at [facility] - [address], [place] [address] Automated Review Successful 04/22/2021 10:18 AM MEDICAL STAFF SPECIALIST [facility] LAB[facility] Comment:Specimen processed s uccessfully by automated receiving supervisor device, ThinPrep Imaging System, [employer] ANCILLARY TESTING SPRING LAYER HPV Ordered, Please see separate report 04/22/2021 10:18 AM MEDICAL STAFF SPECIALIST [facility] LABORAT[facility] Note The pap test is a screening technique, not a diagnostic procedure. It is used primarily to screen for squamous cancers and precursor lesions. Published studies have shown that it is subject to both false negative and false positive results. The pap test should not be used as the sole means to diagnose or exclude pre-malignant and malignant lesions. 04/22/2021 10:18 AM MEDICAL STAFF SPECIALIST [facility] LABORAT[facility]-C ENTRAL LABORATORY Other (Cervical) Non-Blood / Unknown 04/13/2021 4:00 PM MEDICAL STAFF SPECIALIST 04/13/2021 5:52 PM MEDICAL STAFF SPECIALIST Cyn Cha DO PATHOLOGY/CYTOLOGY Final Re sult [facility]CENTRAL LABORATORY [address] [place] [address], [place] * COLONOSCOPY (06/20/2016 9:38 AM CDT) [...] adequate candidate for conscious sedation. The [id number] was passed through the anus and advanced [...] reponse to care. [facility] and nursing notes for moderate sedation details. Total physician intraservice time was 21 minutes. Ming Sethi MD 06/20/2016 11:41:55 AM This report has been signed electronically. Note Initiated On: 06/20/2016 9:38 AM Procedure Code(s): --- Professional --- 01123, Colonoscopy, flexible; diagnostic, including collection of specimen(s) bybrushing or washing, when performed (separateprocedure) Diagnosis Code(s): --- Professional --- K64.8, Other hemorrhoids K92.2, Gastrointestinal hemorrhage,unspecified CPT copyright 2016 [employer] [place] [employer]. All rights reserved. The codes documented in this report are preliminary and upon salesperson burial plots reviewmay be revised to meet current compliance requirements. Scope In: 11:14:19 AM Scope Withdrawal Time 0 hours 9 minutes 57 seconds Scope Out: 11:33:20 AM us Ming Sethi MD PROCEDURE ORD Final Res ult from Last 3 Months or Most Recently Relevant to Health Maintenance Care Teams Test Director Relationship Specialty Start Date End Date Cyn Cha DO [address] [place] [address] PCP - General Family Practice 02/28/18
[2024-10-02 19:40] VITALS: BP 148/78; PULSE 78; RESP 16; TEMP 36.7; O2SAT 98
[2024-10-02 19:58] VITALS: BP 145/78; PULSE 102; RESP 12; O2SAT 99
--- NOTE | 2024-10-02 20:06 | ED.BACK ---
HPI - Back Pain/Injury General Time Seen by Provider: 20:06 Date Seen: 10/02/24 Chief Complaint: Shortness of Breath/Dyspnea Stated Complaint: back pain, headache Time Seen by Provider: 10/02/24 20:05 Source: patient Mode of arrival: ambulatory Limitations: no limitations History of Present Illness HPI Narrative: 59-year-old female who comes in today for back pain and shortness of breath. She reports pain in the upper back and says when it is severe it takes her breath away makes it hard to breathe. She does not have shortness of breath otherwise and does not have pain when she tries to breathe. The pain is worse when she moves or walks. She denies chest pain, abdominal pain, nausea, vomiting, diarrhea, cough, fever, chills. She was seen for this same symptom couple weeks ago, at that time was found to have hyperkalemia but no other acute emergent pathology. Was recommended to follow up with primary care which she has not yet done. Related Data Home Medications ?Medication ?Instructions ?Recorded ?Confirmed acetaminophen PO 08/17/23 05/21/24 aspirin .Route 08/17/23 05/21/24 gabapentin 300 mg capsule 300 mg PO 3XD 08/17/23 09/20/24 insulin asp prt-insulin aspart subcut 08/17/23 05/21/24 levothyroxine .Route 08/17/23 05/21/24 metformin .Route 08/17/23 05/21/24 hydrochlorothiazide 12.5 mg capsule 12.5 mg PO DAILY 09/20/24 09/20/24 levothyroxine 137 mcg tablet mcg PO 09/20/24 metformin 500 mg tablet,extended 1,000 mg PO BID 09/20/24 09/20/24 release 24 hr Previous Rx's ?Medication ?Instructions ?Recorded hydrochlorothiazide 25 mg tablet 25 mg PO DAILY #14 tabs 09/20/24 Allergies Allergy/AdvReac Type Severity Reaction Status Date / Time No Known Drug Allergies Allergy Verified 05/21/24 15:46 PFSH PFS Social History Smoking Status: Never smoker Do you use any of these nicotine containing products: None Second hand tobacco smoke exposure: No How often do you have a drink containing alcohol: never How often do you have six or more drinks on one occasion: Never AUDIT-C Alcohol total score: 0 Non-prescribed substance use: denies use service: No Exam Narrative: Exam Narrative: General: Well-developed and well-nourished, no acute distress Head: Atraumatic and normocephalic Eyes: Pupils are equal reactive, extraocular motions intact, conjunctiva clear ENT: External nose and ears are normal, posterior pharynx without erythema or exudate Neck: No midline cervical tenderness, full spontaneous range of motion the neck, trachea midline, no adenopathy Heart: Tachycardic but regular Lungs: Clear to auscultation bilaterally without wheezes or crackles Abdomen: Soft, nontender, nondistended with active bowel sounds Musculoskeletal: Diffuse tenderness of the trapezius bilaterally as well as the thoracic paraspinous musculature Neurologic: Awake, alert, and oriented x3, no gross focal neurologic deficits, cranial nerves intact as tested Psych: Mood and affect are appropriate Skin: No rashes Const: Vital Signs, click to edit/add: Vital Signs - 24 hr 10/02/24 19:40 10/02/24 19:58 10/02/24 20:51 Temperature 98.1 F Pulse Rate 102 H 93 Pulse Rate [Pulse Oximeter] 78 Respiratory Rate 16 12 Blood Pressure 145/78 H 145/73 H Blood Pressure [Ri ght Upper Arm] 148/78 H Pulse Oximetry 98 99 98 Oxygen Delivery Me thod Room Air Course Course ED Course: Reviewed most recent emergency department visit from September 20 when patient was seen for back pain, cough, sore throat, malaise. At that time, normal CBC take, mild hyperkalemia with potassium 5.5, hyperglycemia, urinalysis with blood and many squamous cells, chest x-ray negative. Patient presents today with upper back pain and shoulder pain along with shortness of breath because of the pain. She denies shortness of breath when the pain is not present. This pain is been present for 2 months off and on, became more severe today. She does have days where she has no pain. No other associated symptoms. On exam here, patient is tachycardic but otherwise finally stable, heart is regular, lungs are clear, no abdominal tenderness, diffuse tenderness of the trapezius and upper back, no midline tenderness and no history of trauma, no indication for thoracic CT. Labs ordered along with fluids, Toradol for symptom management and will monitor in the department. EKG independently interpreted by me performed at 7:56 p.m. demonstrates sinus tachycardia rate 105, normal axis, normal intervals, TN 176, QTC 433, no acute ischemic changes, no change from prior of March 2022 other than rate. Reevaluation(s) Time of Reevaluation #1: 21:01 Reevaluation #1: labs independently interpreted by me with slightly worsened renal function, also hyperglycemia with glucose 552, no anion gap acidosis, sodium 128 which represents pseudohyponatremia , IV fluids have been ordered and regular insulin will be given. Troponin 0.01. Time of Reevaluation #2: 21:45 Reevaluation #2: I reviewed patient's clinic medication list which includes Celebrex, glyburide, Humulin and regular insulin, lisinopril, metformin. At last visit, patient is lisinopril was stopped and patient was started on hydrochlorothiazide. She was continued on Celebrex as well. Patient reports she is taking long-acting insulin 45 units in the morning and 45 units at night, did not take her dose today. She will stop Celebrex, can continue Tylenol, also be given diclofenac topical as well as Lidoderm patches for pain relief, also Robaxin for her back pain Vital Signs Vital signs: Initial Vital Signs Temperature 98.1 F 10/02/24 19:40 Temperature Source Temporal Artery Scan 10/02/24 19:40 Pulse Rate 78 10/02/24 19:40 Respiratory Rate 16 10/02/24 19:40 Blood Pressure 148/78 H 10/02/24 19:40 Blood Pressure Mean 101 10/02/24 19:40 Blood Pressure Position Sitting 10/02/24 19:40 Pulse Oximetry 98 10/02/24 19:40 Oxygen Delivery Method Room Air 10/02/24 19:40 Vital Signs Temperature 98.1 F 10/02/24 19:40 Pulse Rate 78 10/02/24 19:40 Respiratory Rate 16 10/02/24 19:40 Blood Pressure 148/78 H 10/02/24 19:40 Pulse Oximetry 98 10/02/24 19:40 Oxygen Delivery Method Room Air 10/02/24 19:40 Temperature 98.1 F 10/02/24 19:40 Pulse Rate 93 10/02/24 20:51 Respiratory Rate 12 10/02/24 19:58 Blood Pressure 145/73 H 10/02/24 20:51 Pulse Oximetry 98 10/02/24 20:51 Oxygen Delivery Method Room Air 10/02/24 19:40 Medications Administered Medications: Discontinued Medications Generic Name Dose Route Start Last Admin Trade Name Domonique PRN Reason Stop Dose Admin Sodium Chloride 1,000 mls @ 1,000 mls/hr 10/02/24 20:30 10/02/24 20:47 0.9 % Sodium Chloride 1000 Ml IV 10/02/24 21:29 1,000 mls/hr .Q1H KHURRAM Administration Insulin Human Regular 8 unit 10/02/24 21:00 10/02/24 21:23 Insulin Regular, Human 100 Unit/Ml Vial IVP 10/02/24 21:01 8 unit ONCE ONE Administration Ketorolac Tromethamine 15 mg 10/02/24 20:22 10/02/24 20:47 Ketorolac 15 Mg/Ml Inj IVP 10/02/24 20:23 15 mg ONCE ONE Administration MDM - Back Pain/Injury Lab Data Labs: Lab Results 10/02/24 10/02/24 Range/Units 19:45 20:23 WBC 7.44 (4.50-11.00) K/uL RBC 4.19 (4.00-5.20) m/uL Hgb 11.4 L (12.0-16.0) gm/dL Hct 34.3 (33.0-51.0) % MCV 82 (80-100) fL MCH 27 (26-34) pg MCHC 33 (32-36) gm/dL RDW Coeff of John 12.2 (11.5-15.5) % Plt Count 397 (140-440) K/uL Neut % (Auto) 67.2 (42.0-72.0) % Lymph % (Auto) 19.4 L (20-44) % Hickman % (Auto) 9.4 (0.0-11.0) % Eos % (Auto) 2.8 (0.0-7.0) % Baso % (Auto) 0.7 (0.0-3.0) % Neut # (Auto) 5.00 (1.7-7.0) K/uL Lymph # (Auto) 1.40 (0.90-2.90) K/uL Hickman # (Auto) 0.70 (0.00-0.90) K/UL Eos # (Auto) 0.21 (0.00-0.50) K/uL Baso # (Auto) 0.05 (0.00-0.30) K/uL Abs Immat Gran (auto) 0.04 (0.00-0.30) K/uL Imm/Tot Granulo (auto) 0.5 % Sodium 128 L (135-149) mmol/L Potassium 4.6 (3.6-5.1) mmol/L Chloride 98 (96-114) mmol/L Carbon Dioxide 21 (20-32) mmol/L Anion Gap 9 (7-15) mEq/L BUN 35 H (7-30) mg/dL Creatinine 1.7 H (0.5-1.5) mg/dL Estimated GFR 35 ml/min Glucose 552 H* (60-115) mg/dL Calcium 9.8 (8.4-10.6) mg/dL Magnesium 1.7 (1.5-2.6) mg/dL C-Reactive Protein < 0.5 L (0.5-1.0) mg/dL POC Troponin I 0.01 (0.01-0.04) ng/ml Discharge Plan Discharge Clinical Impression: Hyperglycemia due to type 2 diabetes mellitus, Bilateral thoracic back pain, ERON (acute kidney injury) Patient Disposition: Home, Self-Care Instructions: Acute Kidney Injury (DC), Thoracic Pain (ED), Type 2 Diabetes Management for Adults (ED) Additional Instructions: Stop taking Celebrex Make sure you are taking your diabetes medications as prescribed and strictly adhering to diabetic diet Follow-up with your primary care doctor as scheduled Activity Level: No Restrictions Discharge Diet: Diabetic Prescriptions: Discontinued lisinopril .Route celecoxib 200 mg capsule 200 mg PO DAILY PRN lisinopril 10 mg tablet 10 mg PO DAILY No Action acetaminophen PO metformin .Route aspirin .Route levothyroxine .Route insulin asp prt-insulin aspart [Novolog Mix 70-30FlexPen U-100] subcut gabapentin 300 mg capsule 300 mg PO 3XD levothyroxine 137 mcg tablet PO hydrochlorothiazide 12.5 mg capsule 12.5 mg PO DAILY metformin 500 mg tablet extended release 24 hr 1,000 mg PO BID hydrochlorothiazide 25 mg tablet 25 mg PO DAILY Qty: 14 2RF Follow Up/Referrals: Provider,Not a Local [Primary Care Provider, Family Practice] Stand Alone Forms: MyHealth Info Instructions
[2024-10-02 20:34] LABS: Hematocrit 34.3 % (33.0-51.0); Hemoglobin* 11.4 gm/dL (12.0-16.0); Immature Granulocytes Abs Auto 0.04 K/uL (0.00-0.30); Immature Granulocytes Pct Auto 0.5 %; Mean Corpuscular HGB Conc 33 gm/dL (32-36); Mean Corpuscular Hemoglobin 27 pg (26-34); Mean Corpuscular Volume 82 fL (80-100); RDW Coefficient of Variation % 12.2 % (11.5-15.5); Red Blood Count 4.19 m/uL (4.00-5.20); White Blood Count* 7.44 K/uL (4.50-11.00)
[2024-10-02 20:38] LABS: Lymphocytes Absolute Auto 1.40 K/uL (0.90-2.90); Slide Review Reflex No
[2024-10-02 20:46] LABS: Chloride* 98 mmol/L (96-114); Potassium* 4.6 mmol/L (3.6-5.1); Sodium* 128 mmol/L (135-149)
[2024-10-02 20:49] LABS: Blood Urea Nitrogen* 35 mg/dL (7-30); Creatinine* 1.7 mg/dL (0.5-1.5); Estimated Glomerular Filt Rate 35 ml/min
[2024-10-02 20:50] LABS: Anion Gap 9 mEq/L (7-15); Calcium* 9.8 mg/dL (8.4-10.6); Carbon Dioxide* 21 mmol/L (20-32)
[2024-10-02 20:51] VITALS: BP 145/73; PULSE 93; O2SAT 98
[2024-10-02 20:52] LABS: Glucose* 552 mg/dL (60-115)
[2024-10-02 20:59] LABS: Troponin, Point-of-Care* 0.01 ng/ml (0.01-0.04)
[2024-10-02 21:15] VITALS: PULSE 95; RESP 14; O2SAT 99
[2024-10-02] MEDS: INSULIN REGULAR, HUMAN 100 UNIT/ML VIAL 8 UNIT IVP (21:23)
[2024-10-02 21:38] LABS: Appearance Urine Cloudy (Clear)
[2024-10-02 21:39] VITALS: BP 171/83; PULSE 96; RESP 16; O2SAT 98
[2024-10-02 21:48] LABS: Glucose, Point-of-Care* 384 mg/dl (60-115)
[2024-10-02 22:02] VITALS: BP 169/84; PULSE 101; RESP 18; O2SAT 91
== END 2024-10-02 22:23 | disposition home or self-care (01) ==
PROVIDERS: Emergency Provider Family Medicine
DX: M54.6 Pain in thoracic spine (principal); E11.65 Type 2 diabetes mellitus with hyperglycemia; N17.9 Acute kidney failure, unspecified
CPT/HCPCS: 36415; 80048; 81001; 82947; 82962; 83735; 84484; 85025; 86140; 87086; 93005; 96374; 99284; J1885; J7030